=== PATIENT | female | born 1960 | race Caucasian/White ===

== ENCOUNTER → 2016-05-24 | Outpatient (CLI) | payer BC, MEDICARE, OTHER ==
--- NOTE | 2016-05-24 15:37 | WOMENS IMAGING REPORT ---
EXAM DESCRIPTION: BILAT SCREENING MAMMO W/CAD COMPLETED DATE/TIME: 05/24/2016 2:21 pm REASON FOR STUDY: BILAT SCREENING MAMMO (Z12.31) Z12.31 ENCNTR SCREEN MAMMOGRAM FOR MALIGNANT NEOPL ASM OF YRIS COMPARISON: 2008 to 2015 TECHNIQUE: Standard craniocaudal and mediolateral oblique views of each breast recorded using digita l acquisition. LIMITATIONS: None. FINDINGS: No masses, calcifications or architectural distortion. No areas of suspicion. Read with the assistance of CAD. .[facility] - R2 Cenova Version 1.3 .[facility] - R2 Cenova Version 1.3 .[facility] - R2 Cenova Version 2.4 .[facility] [place]2 Cenova Version 2.4 .[facility] - R2 Publishing Manager Version 9.2 BREAST DENSITY: b. There are scattered areas of fibroglandular density. BIRAD: 1 NEGATIVE RECOMMENDATION: ROUTINE SCREENING COMMENT: PATIENT NOTIFIED BY LETTER. The [employer] [place] [employer] recommends an annual screening mammogram for women aged 40 years or over. Each patient will receive a reminder prior to the anniversary date of her mammogram. The [employer] [place] [employer] (ACR) has developed recommendations for screening MRI of the breast s in certain patient populations, to be used in conjunction with mammography. Breast MRI surveillanc e may be appropriate for women with more than 20% lifetime risk of developing breast cancer as deter mined by genetic testing, significant family history of the disease, or history of mantle radiation f or Hodgkins Disease. ACR Practice Guidelines 2008. TECHNICAL DOCUMENTATION: FINDING NUMBER: (1) ASSESSMENT: (1) JOB ID: [id number] [employer]- All Rights Reserved
== END ==
LOC: WI 14:17
PROVIDERS: ATTEND Surgery
DX: Z12.31 Encounter for screening mammogram for malignant neoplasm of breast (principal)
CPT/HCPCS: 77067; G0202

== ENCOUNTER 2016-11-15 09:52 | Inpatient (IN) | payer BC, MEDICARE ==
[2016-11-15] MEDS ORDERED: NORMAL SALINE 1000 ML 1,000 ML IV ONE (10:23)
[2016-11-15] MEDS ORDERED: METHYLPREDNISOLONE INJ 125 MG/2 ML SDV IV ONE (10:23)
[2016-11-15 10:24] LABS: VENOUS BLOOD BASE EXCESS -2.1 mmol/L; VENOUS BLOOD HCO3 21.1 mmol/L (20-32); VENOUS BLOOD PCO2 31.5 mmHg (35-63); VENOUS BLOOD PH 7.44 (7.30-7.42)
[2016-11-15 10:25] LABS: ABSOLUTE LYMPHOCYTES (AUTO) 0.8 10^3/uL (0.5-4.7); ABSOLUTE MONOCYTES (AUTO) 0.5 10^3/uL (0.1-1.4); ABSOLUTE NEUT (AUTO) 12.3 10^3/uL (1.7-8.2); BASOPHILS % (AUTO) 0.3 % (0-2); HEMATOCRIT 39.1 % (36.0-47.0); HEMOGLOBIN 12.9 g/dL (12.0-15.5); HGB HCT DIFFERENCE -0.4; LYMPHOCYTES % (AUTO) 5.5 % (13-45); MEAN CORPUSCULAR HEMOGLOBIN 31.4 pg (27.0-33.4); MEAN CORPUSCULAR VOLUME 95 fl (80-97); MONOCYTES % (AUTO) 3.8 % (3-13); RED CELL DISTRIBUTION WIDTH 13.3 % (11.5-14.0); SEGMENTED NEUTROPHILS % (AUTO) 90.4 % (42-78); WHITE BLOOD COUNT 13.7 10^3/uL (4.0-10.5)
[2016-11-15 10:45] LABS: ALANINE AMINOTRANSFERASE 33 U/L (9-52); ALBUMIN 4.2 g/dL (3.5-5.0); ALKALINE PHOSPHATASE 69 U/L (38-126); ANION GAP 15 (5-19); ASPARTATE AMINO TRANSFERASE 23 U/L (14-36); BILIRUBIN,DIRECT 0.4 mg/dL (0.0-0.4); BILIRUBIN,TOTAL 0.4 mg/dL (0.2-1.3); BLOOD UREA NITROGEN 10 mg/dL (7-20); CALCIUM 9.8 mg/dL (8.4-10.2); CARBON DIOXIDE 18 mmol/L (22-30); CHLORIDE 102 mmol/L (98-107); CREATINE KINASE 273 U/L (30-135); CREATININE RESULT 0.67 mg/dL (0.52-1.25); GLUCOSE 97 mg/dL (75-110); SODIUM 134.9 mmol/L (137-145); TOTAL PROTEIN 7.3 g/dL (6.3-8.2)
[2016-11-15] MEDS ORDERED: ACETAMINOPHEN 325 MG TABLET PO ONE (10:47)
--- NOTE | 2016-11-15 10:48 | ER Document Report ---
ED Respiratory Problem - General Chief Complaint: Breathing Difficulty Stated Complaint: COUGH AND CONGESTION Time Seen by Provider: 11/15/16 10:14 Information source: Patient Notes: Patient is a 56-year-old female with past medical history of COPD, high cholesterol, high blood pressure, on 2 L of nasal cannula at baseline at home with presents today with the onset 3 days ago of increased cough, temperature 101, with some yellow phlegm. Patient denies any headache, neck pain, and states posttussive emesis 2. Patient states some substernal chest and back pain only with coughing. She denies any calf pain, leg swelling, or recent trips or travel. TRAVEL OUTSIDE OF THE [place] IN LAST 30 DAYS: No - HPI Patient complains to provider of: COPD Onset: Other - See above Initiating Event: Other - See above Quality of pain: Dull Severity: Mild Pain Level: 2 Short of Breath: Mild Chest pain/discomfort: Center Cough: Productive Sputum amount: Scant Sputum color: Yellow - Related Data Allergies/Adverse Reactions: Sulfa (Sulfonamide Antibiotics) Allergy (Severe, Verified 04/28/12 16:06) Past Medical History - General Information source: Patient - Social History Smoking Status: Unknown if Ever Smoked Cigarette use (# per day): No Chew tobacco use (# tins/day): No Smoking Education Provided: No Frequency of alcohol use: None Family History: Reviewed & Not Pertinent Patient has homicidal ideation: No - Past Medical History Cardiac Medical History: Reports: Hx Hypercholesterolemia, Hx Hypertension Denies: Hx Heart Attack Pulmonary Medical History: Reports: Hx Asthma - COPD, Hx COPD, Hx Pneumonia - 3 YRS AGO Denies: Hx Tuberculosis Neurological Medical History: Denies: Hx Cerebrovascular Accident, Hx Seizures Renal/ Medical History: Denies: Hx Peritoneal Dialysis GI Medical History: Reports: Hx Gastroesophageal Reflux Disease. Denies: Hx Hepatitis, Hx Hiatal Hernia, Hx Ulcer Musculoskeltal Medical History: Reports Hx Arthritis Traumatic Medical History: Reports: Hx Fractures - RIBS-LEFT SIDE Infectious Medical History: Denies: Hx Hepatitis Past Surgical History: Reports: Hx Hysterectomy. Denies: Hx Mastectomy, Hx Open Heart Surgery, Hx Pacemaker - Immunizations Hx Diphtheria, Pertussis, Tetanus Vaccination: No Hx Pneumococcal Vaccination: 03/09/10 Review of Systems - Review of Systems Constitutional: Fever EENT: Nose congestion, Nose discharge. denies: Eye discharge Cardiovascular: Chest pain. denies: Palpitations Respiratory: denies: Short of breath Gastrointestinal: denies: Vomiting Genitourinary: denies: Dysuria Musculoskeletal: denies: Leg swelling Skin: Other - no hives. denies: Rash Neurological/Psychological: Other - no slurred speech -: Yes All other systems reviewed and negative Physical Exam - Vital signs Vitals: Temp Pulse Resp BP Pulse Ox 99.0 F 126 H 32 H 140/85 H 90 L 11/15/16 09:57 11/15/16 09:57 11/15/16 09:57 11/15/16 09:57 11/15/16 09:57 Interpretation: Normal Notes: Reviewed vital signs and nursing note as charted by RN. CONSTITUTIONAL: Alert and oriented and responds appropriately to questions. Well -appearing; well-nourished HEAD: Normocephalic; atraumatic ENT: Bilateral nonpurulent rhinorrhea; moist mucous membranes; pharynx without lesions noted NECK: Supple without meningismus; non-tender; no cervical lymphadenopathy, no masses CARD: Tachycardic; no murmurs, no clicks, no rubs, no gallops; symmetric distal pulses RESP: Tachypneic; bilateral wheezing with no obvious rhonchi or rales; chest nontender no obvious crepitus erythema or swelling ABD/GI: Normal bowel sounds; non-distended; soft, non-tender BACK: The back appears normal and is non-tender to palpation, there is no CVA tenderness EXT: Normal ROM in all joints; non-tender to palpation; no cyanosis, no effusions, no edema SKIN: Normal color for age and race; warm; dry; good turgor; capillary refill < 2 seconds; patient's right second and third toe with bandage in place. No surrounding erythema or induration NEURO: Moves all extremities equally; Motor and sensory function intact PSYCH: The patient's mood and manner are appropriate. Grooming and personal hygiene are appropriate. Course - Re-evaluation Re-evalutation: 11/15/16 10:47 Given the above history and physical examination we will order steroids, nebulizers, x-ray of the chest, basic labs, EKG, and reassess. I believe given the history and physical examination that the patient has an extremely low pretest probability for aortic dissection or pulmonary embolism. We will reassess the patient. Patient's heart is currently 120 with no history of heart failure. A liter of fluid has been provided. 11/15/16 11:00 EKG shows a heart rate of 115, sinus tachycardia, normal axis, no obvious ST elevation or depression. Flattening T waves in leads III and aVF 11/15/16 13:26 Wheezing is slightly improved. Labs as recorded. Normal lactic acid. Patient is still having some mild tachypnea with a heart rate of 115 with wheezing on end expiration. I will admit the patient for COPD exacerbation. - Vital Signs Vital signs: Temp Pulse Resp BP Pulse Ox 99.0 F 126 H 32 H 140/85 H 90 L 11/15/16 09:57 11/15/16 09:57 11/15/16 09:57 11/15/16 09:57 11/15/16 09:57 - Laboratory Result Diagrams: 11/15/16 10:10 11/15/16 10:10 Laboratory results interpreted by me: 11/15/16 11/15/16 11/15/16 10:10 10:10 10:10 WBC 13.7 H Seg Neutrophils % 90.4 H Lymphocytes % 5.5 L Absolute Neutrophils 12.3 H VBG pH 7.44 H VBG pCO2 31.5 L Sodium 134.9 L Carbon Dioxide 18 L Creatine Kinase 273 H Critical Care Note - Critical Care Note Total time excluding time spent on procedures (mins): 32 Discharge - Discharge Clinical Impression: Bacterial pneumonia, Wheezing Condition: Fair Disposition: ADMITTED OBSERVATION Admitting Provider: Hospitalist Unit Admitted: Telemetry Referrals: YOVANA LABOY MD [Primary Care Provider] - Follow up as needed
[2016-11-15 10:55] LABS: TROPONIN I < 0.012 ng/mL
[2016-11-15] MEDS: IPRATROPIUM/ALBUTEROL 0.5-2.5 MG/3 ML AMPUL NEB SCH ×3 (11:06→11:54)
--- NOTE | 2016-11-15 11:11 | RADIOLOGY REPORT (SQ) ---
EXAM DESCRIPTION: CHEST SINGLE VIEW COMPLETED DATE/TIME: 11/15/2016 10:49 am REASON FOR STUDY: bed 11 db COMPARISON: CT chest 04/28/2012 Chest films 04/28/2012, 07/14/2011 EXAM PARAMETERS: NUMBER OF VIEWS: One view. TECHNIQUE: Single frontal radiographic view of the chest acquired. RADIATION DOSE: NA LIMITATIONS: None. FINDINGS: LUNGS AND PLEURA: Increased interstitial markings are present at the left lung base, quest ion asymmetric interstitial pulmonary edema. Early atypical pneumonia could also mimic this appearan ce. No pleural effusions. No pneumothorax. MEDIASTINUM AND HILAR STRUCTURES: No masses. Contour normal. HEART AND VASCULAR STRUCTURES: Cardiac silhouette size normal BONES: Multiple old healed right lateral rib fractures HARDWARE: None in the chest. OTHER: No other significant finding. IMPRESSION: Asymmetric increased interstitial markings at the left lung base, asymmetric edema versu s atypical pneumonia. Asymmetric pulmonary fibrosis could mimic this appearance. No cardiomegaly. No pleural effusions or pneumothorax. TECHNICAL DOCUMENTATION: JOB ID: [id number]
[2016-11-15 11:28] LABS: APPEARANCE,URINE CLEAR; BILIRUBIN,URINE NEGATIVE (NEGATIVE); GLUCOSE, URINE NEGATIVE (NEGATIVE); KETONES,URINE NEGATIVE (NEGATIVE); LEUKOCYTE ESTERASE,URINE NEGATIVE (NEGATIVE); NITRITE,URINE NEGATIVE (NEGATIVE); PROTEIN,URINE NEGATIVE (NEGATIVE); URINE SPECIFIC GRAVITY 1.009; UROBILINOGEN,URINE NEGATIVE mg/dL (<2.0)
--- NOTE | 2016-11-15 13:04 | EKG REPORT ---
SEVERITY:- BORDERLINE ECG - SINUS TACHYCARDIA NONSPECIFIC ST-T CHANGES, DIFFUSE : Confirmed by: Jason Peguero MD 15-Nov-2016 13:04:14
[2016-11-15] MEDS ORDERED: GUAIFENESIN 600 MG TABLET.SA PO ONE (14:18)
[2016-11-15] MEDS ORDERED: BENZONATATE 100 MG CAPSULE PO PRN (14:18)
[2016-11-15] MEDS ORDERED: LEVALBUTEROL HCL NEB 0.63 MG/3 ML AMPUL NEB PRN (14:20)
[2016-11-15] MEDS ORDERED: KETOROLAC TROMETHAMINE INJ/PF 30 MG/1 ML SDV IV ONE (14:20)
--- NOTE | 2016-11-15 14:26 | Progress Note ---
Provider Note Provider Note: DANAE VERAS Search Criteria: Last Name 'Danae' and First Name 'Mariely' and = ' and Request Period = '05/19/16' to 11/15/16' - 1 out of 1 Recipients Selected. Fill Date Product, Str, Form Qty Days Pt ID Prescriber Written RX# N/R* Pharm MED+ ------ ---- --------- --- ------- ----- -------- 10/19/2016 HYDROCODON-ACETAMINOPHN 10-325 60.00 30 [id number] 2016 [id number] N [id number] 20.0 10/12/2016 HYDROCODON-ACETAMINOPH 7.5-325 20.00 4 [id number] 10/12/2016 [id number] N [id number] 37.5 10/06/2016 HYDROCODON-ACETAMINOPH 7.5-325 20.00 4 [id number] 10/06/2016 [id number] N [id number] 37.5 09/19/2016 HYDROCODON-ACETAMINOPHN 10-325 60.00 30 [id number] 2016 [id number] N [id number] 20.0 08/25/2016 HYDROCODON-ACETAMINOPHN 10-325 30.00 30 [id number] 2016 [id number] N [id number] 10.0 08/20/2016 HYSINGLA ER 20 MG TABLET 30.00 30 [id number] 08/18/2016 [id number] N [id number] 20.0 08/18/2016 HYDROCODON-ACETAMINOPHN 10-325 15.00 5 [id number] 08/13/2016 [id number] N [id number] 30.0 08/10/2016 HYDROCODON-ACETAMINOPHN 10-325 12.00 3 [id number] 08/10/2016 [id number] N [id number] 40.0 08/10/2016 DIAZEPAM 10 MG TABLET 2.00 1 [id number] 08/10/2016 [id number] N [id number] 00.0 07/26/2016 DIAZEPAM 10 MG TABLET 2.00 1 [id number] 07/21/2016 [id number] N [id number] 00.0 07/26/2016 HYDROCODON-ACETAMINOPHN 10-325 60.00 30 [id number] 2016 [id number] N [id number] 20.0 06/27/2016 HYDROCODON-ACETAMINOPHN 10-325 60.00 30 [id number] 2016 [id number] N [id number] 20.0 06/16/2016 HYDROCODON-ACETAMINOPH 7.5-325 20.00 5 [id number] 06/16/2016 [id number] N [id number] 30.0 05/28/2016 HYDROCODON-ACETAMINOPHN 10-325 60.00 30 [id number] 2016 [id number] N [id number] 20.0 [id number] BILLY CLEMENTS PA-C; [facility], [address] [facility] [address] [id number] ROSANNE WILLAMS DPM; [facility], [address] [place] [address], [facility] [address] [id number] ISSAC ENRIQUEZ E; [facility], [address] [place] [address] [id number] INES MILNER; [facility], [address] [place] [address],, [facility] [address]
[2016-11-15] MEDS ORDERED: ENOXAPARIN SODIUM INJ 40 MG/0.4 ML DISP.SYRIN SUBCUT ONE (14:30)
[2016-11-15] MEDS ORDERED: FLUTICASONE NASAL SPRAY 50 MCG/SPRY 120 SPRAY/16 GM NASL ONE (15:00)
[2016-11-15] MEDS: LEVALBUTEROL HCL NEB 1.25 MG/3 ML AMPUL NEB SCH (16:51)
--- NOTE | 2016-11-15 17:38 | HISTORY AND PHYSICAL E ---
History and Physical NAME: RITO FINK : 1960 AGE: 56Y ADMITTED: 11/15/2016 ROOM: ED11 PRIMARY CARE PROVIDER: Dr. Vini Ovalles OUTPATIENT LITERARY AGENT: Dr. Christensen CHIEF COMPLAINT: Shortness of breath and sputum production. HISTORY OF PRESENT ILLNESS: The patient is a 56-year-old female with a past medical history of chronic obstructive pulmonary disease as well as pulmonary fibrosis. The patient is chronically O2 dependent. The patient presents to the emergency department with a chief complaint of cough and congestion as well as shortness of breath. 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 The patient describes increasing cough, a temperature of greater than 101 as well as excessive amount of yellow phlegm. The patient states that she does have full body aches as well as a headache as well as some back pain associated with her coughing. The patient denies any recent travel, calf pain, or leg pain. Upon presentation to the emergency department, the patient was found to be tachycardiac with a heart rate of 126, a temperature of 99.0, oxygen saturation was 90% on room air and the patient was tachypneic with a respiratory rate of 32. That in conjunction with the patient's chest x-ray, it was felt the patient did have SIRS versus early sepsis and was referred to the hospitalist for admission and management. PAST MEDICAL HISTORY: Remarkable for: 1. Hypertension. 2. Chronic obstructive pulmonary disease with O2 dependency. 3. Hyperlipidemia. 4. Chronic pain with opiate dependency. PAST SURGICAL HISTORY: Remarkable for: 1. Hysterectomy. 2. Tonsillectomy. 3. Right wrist repair. 4. Bilateral surgeries on her second toe. ALLERGIES: Include SULFA. HOME MEDICATIONS: 1. Albuterol puff inhalation q.i.d. p.r.n. 2. Norvasc 10 mg p.o. daily. 3. Lexapro 20 mg p.o. daily. 4. Nexium 40 mg p.o. b.i.d. 5. Premarin 0.9 mg p.o. daily. 6. Tricor 445 mg p.o. daily. 7. Advair 250/50 one inhalation q.12 hours. 8. Phenergan 25 mg p.o. q.4 hours p.r.n. 9. Crestor 10 mg p.o. b.i.d. 10. Spiriva 1 capsule inhalation daily. SOCIAL HISTORY: The patient currently resides at home with her spouse who is also her surrogate decision maker, Hagn. The patient denies any history of alcohol abuse or illicit drug use. The patient is an active smoker with a 60-year pack history. The patient is disabled due to chronic back pain. FAMILY MEDICAL HISTORY: The patient's father is of lung cancer and heart disease. The patient's mother is of a stroke. The patient has 1 brother who has had a stroke and 2 sisters who are otherwise healthy. The patient's children have no chronic medical problems. REVIEW OF SYSTEMS: CONSTITUTIONAL: The patient denies any dizziness, weakness, loss of appetite. Positive for fevers and chills. INTEGUMENTARY: The patient denies any diaphoresis, rash, bruising, itching. HEENT: Denies any vision changes, hearing loss, nasal drainage, sore throat. Positive for headache. CARDIOVASCULAR: Denies any chest pain, edema, or heart palpitations. Positive for shortness of breath. RESPIRATORY: Denies any hemoptysis for positive for cough and yellow sputum production. GASTROINTESTINAL: Denies any nausea, vomiting, diarrhea, abdominal pain, bloating, hematemesis, constipation, melena, hematochezia. Last bowel movement was on 11/14/2016 which was "normal." GENITOURINARY: Denies any hematuria, pyuria, or dysuria. MUSCULOSKELETAL: The patient does have chronic lower back pain. No acute pains. NEUROLOGICAL: No seizures, tremors, loss of consciousness. HEMATOLOGICAL: Denies any todd bleeding or easy bruising. ENDOCRINE: Denies any recent weight changes. PSYCHIATRIC: Denies suicidal or homicidal ideation. Rest of review of the other organ systems is negative. PHYSICAL EXAMINATION: GENERAL: On examination, the patient is a frail, chronically ill appearing 56-year-old female who is awake, alert, and oriented who appears much older than stated age. She does appear to be in some mild distress. VITAL SIGNS: Temperature 99.0, pulse 126, respirations 32, blood pressure is 140/85, oxygen saturation is 92% on 3 L nasal cannula. SKIN: Pale and dry. No rash. She is not diaphoretic. HEENT: Pupils equal, round, reactive to light and accommodation. Conjunctivae are pink. Sclerae are nonicteric. There are no masses or lesions. Tongue is midline. NECK: Supple. No JVD. No palpable lymphadenopathy or thyromegaly. CARDIOVASCULAR: Heart is tachycardiac but regular with no rub. CHEST: Symmetrical with expiratory wheezes, slightly labored. ABDOMEN: Soft, nontender, nondistended. Bowel sounds are present. No palpable organomegaly. BACK: No CVA tenderness or sacral edema. EXTREMITIES: No clubbing, cyanosis, edema, or peripheral signs of embolization. Pedal pulses 2+ noted bilaterally. PSYCHIATRIC: Appropriate affect. Pleasant mood. NEUROLOGIC: Cranial nerves II-XII are grossly intact. DIAGNOSTICS: Lab values are follows: Hematology obtained on 11/15/2016: WBCs are 13.7, hemoglobin is 12.9, hematocrit is 39.9, platelet count is 266,000. Chemistry obtained on 11/15/2016: Sodium is 134, potassium 4.0, chloride is 102, carbon dioxide 18, BUN 10, creatinine is 0.67, glucose 97, lactic acid 1.1, calcium is 9.8, bilirubin is 0.4, AST 23, ALT 33, alk phos 69, CK 273, CK-MB is 1.40, troponin is 0.012, total protein is 4.3, albumin 4.2. Urinalysis obtained on 11/15/2016: Color yellow, appearance clear, pH 5.0, specific gravity 1.009, protein negative, glucose negative, ketones negative, occult blood negative, nitrate negative, bilirubin negative, urobilinogen negative, leukocyte esterase negative, WBC 1, RBC 0, mucous rare, ascorbic acid is negative. Venous blood gas obtained on 11/15/2016: Her pCO2 is 31, bicarb is 21, pH is 7.44. Microbiology obtained on 11/15/2016: Blood cultures are pending. Chest x-ray obtained on 11/15/2016 reveals asymmetric interstitial increased markings of left lung base. Asymmetric edema versus atypical pneumonia. Asymmetric pulmonary fibrosis is a possibility. No pleural effusion or pneumothorax. IMPRESSION AND PLAN: 1. Chronic obstructive pulmonary disease exacerbation. Will schedule nebulizers as well as steroids. Resume the patient's home medications once reconcilable and follow. 2. Bacterial pneumonia. Will cover the patient with doxycycline for now as she has had an excellent response to this in the past and also add Mucinex and pulmonary toilet and follow. 3. Ejbby-mt-hqhewga hypoxemic respiratory failure. Will continue supplemental O2 and follow. 4. Opiate dependency continuous. Will resume the patient's chronic medications once reconcilable. 5. Hypertension. Will resume the patient's home medications. 6. Gastroesophageal reflux disease. Will continue the patient's home medications. 7. Hyperlipidemia. Will continue statin. 8. Tobacco dependency. Spent 3 minutes discussing smoking cessation education. The patient declines any pharmacological intervention at this time but has agreed to take a p.r.n. nicotine patch. 9. DVT prophylaxis. Will start the patient on subcutaneous Lovenox. DISPOSITION: The patient is a FULL CODE. Pending patient's symptomatology and diagnostic findings, will reevaluate in the a.m. Will admit the patient to inpatient IMCU as the patient's expected length of stay will surpass 2 midnights. Time spent on this admission including assessment, plan, physical examination, patient education, and family meeting is 40 minutes. DICTATING PHYSICIAN: DEDE VASQUES NP [id number] PHY#: [id number] ID: [id number] JOB#: [id number] ACCT: [id number] cc:RACHEL QUEEN M.D., MICHAEL NP > MTDD
[2016-11-15] MEDS: DOXYCYCLINE HYCLATE 100 MG in DEXTROSE 5%-WATER 250 ML IV SCH (19:44)
[2016-11-15] MEDS ORDERED: KETOROLAC TROMETHAMINE INJ/PF 30 MG/1 ML SDV IV PRN (20:22)
[2016-11-15] MEDS: METHYLPREDNISOLONE INJ 125 MG/2 ML SDV IV SCH (21:31)
[2016-11-15] MEDS: GUAIFENESIN 600 MG TABLET.SA PO SCH (21:32)
[2016-11-15] MEDS: ATORVASTATIN CALCIUM 10 MG TABLET PO SCH (21:32)
[2016-11-15] MEDS: MONTELUKAST SODIUM 10 MG TABLET PO SCH (21:32)
[2016-11-15] MEDS: FLUTICASONE NASAL SPRAY 50 MCG/SPRY 120 SPRAY/16 GM NASL SCH (21:33)
[2016-11-15] MEDS ORDERED: (PENDING PHARMACY ID) (Rosuvastatin Calcium [Crestor 20 Mg Tablet] 20 MG) PO SCH (22:00)
[2016-11-16] MEDS: LEVALBUTEROL HCL NEB 1.25 MG/3 ML AMPUL NEB SCH ×4 (01:00→23:42)
[2016-11-16] MEDS: METHYLPREDNISOLONE INJ 125 MG/2 ML SDV IV SCH ×3 (05:33→21:07)
[2016-11-16] MEDS: DOXYCYCLINE HYCLATE 100 MG in DEXTROSE 5%-WATER 250 ML IV SCH ×2 (05:33→18:10)
[2016-11-16 06:30] LABS: HEMATOCRIT 33.9 % (36.0-47.0); HEMOGLOBIN 11.3 g/dL (12.0-15.5); MEAN CORPUSCULAR HEMOGLOBIN 31.5 pg (27.0-33.4); MEAN CORPUSCULAR HGB CONC 33.2 g/dL (32.0-36.0); MEAN CORPUSCULAR VOLUME 95 fl (80-97); RED BLOOD COUNT 3.58 10^6/uL (3.72-5.28); RED CELL DISTRIBUTION WIDTH 13.4 % (11.5-14.0); WHITE BLOOD COUNT 13.5 10^3/uL (4.0-10.5)
[2016-11-16 06:53] LABS: ANION GAP 14 (5-19); BLOOD UREA NITROGEN 13 mg/dL (7-20); CALCIUM 9.2 mg/dL (8.4-10.2); CARBON DIOXIDE 19 mmol/L (22-30); CHLORIDE 106 mmol/L (98-107); CREATININE RESULT 0.48 mg/dL (0.52-1.25); GLUCOSE 103 mg/dL (75-110); POTASSIUM 4.1 mmol/L (3.6-5.0); SODIUM 138.6 mmol/L (137-145)
--- NOTE | 2016-11-16 09:03 | PROGRESS NOTE E ---
Progress Note NAME: RITO FINK : 1960 AGE: 56Y DATE: 11/16/2016 ROOM: 527 SUBJECTIVE: The patient is lying bed. She states that she feels much better in comparison to yesterday. The patient is dyspneic; however, she is now able to complete sentences which is a change in comparison. The patient denies any nausea or vomiting. No diarrhea, dizziness, or chest pain. The patient states that she has had a very strong cough and is now able to produce sputum which is an improvement. The patient does not voice any other concerns at this time. REVIEW OF SYSTEMS: Rest of the review of systems negative. MEDICATIONS: Have been reviewed. OBJECTIVE: GENERAL: The patient is a 56-year-old female who is awake, alert, and oriented to person, place, time, and situation. She is verbal, conversational, and does not appear to be in acute distress. VITAL SIGNS: Temperature 97.3, pulse 109, respirations 17, blood pressure 124/78, oxygen saturation is 98% on 2 L nasal cannula. SKIN: Warm and dry. No rash. She is not diaphoretic. HEENT: Pupils equal, round, reactive to light and accommodation. Conjunctivae are pink. No JVP. CARDIOVASCULAR: Heart is regular with no murmur or rub. CHEST: Diminished, symmetrical, mildly labored. ABDOMEN: Soft, nontender, nondistended. BACK: No CVA tenderness or sacral edema. EXTREMITIES: No clubbing, cyanosis, or edema. PSYCHIATRIC: Appropriate affect. Pleasant mood. DIAGNOSTICS: Lab values are as follows: Hematology obtained on 11/16/2016: WBCs are 13.5, hemoglobin is 11.3, hematocrit is 33.9, platelet count is 218,000. Chemistry obtained on 11/16/2016: Sodium is 138, potassium 4.1, chloride is 106, carbon dioxide 19, BUN 13, creatinine 0.48, glucose 103, calcium is 9.2. Microbiology: Blood cultures obtained on 11/15/2016 are pending. IMPRESSION AND PLAN: 1. CHRONIC OBSTRUCTIVE PULMONARY DISEASE EXACERBATION. Will continue nebulizers as well as steroids and have resumed the patient's home medications. Overall the patient is now on her home oxygen setting. 2. BACTERIAL PNEUMONIA. Will continue doxycycline as the patient has had an excellent response to this with Mucinex and pulmonary toilet. Will follow. Will obtain chest x-ray in the a.m. 3. GPSPC-WD-SYOGYXS HYPOXEMIC RESPIRATORY FAILURE. The patient is on home dose of supplemental O2. 4. OPIATE DEPENDENCY CONTINUOUS. Will continue the patient's medications once they are reconcilable. 5. HYPERTENSION. Will resume home medications. 6. GASTROESOPHAGEAL REFLUX DISEASE. Will continue home medications. 7. HYPERLIPIDEMIA. Will continue statin. 8. TOBACCO DEPENDENCY. Will continue p.r.n. nicotine patch. 9. DVT PROPHYLAXIS. Will continue subcutaneous Lovenox. DISPOSITION: The patient is a FULL CODE. Pending patient's symptomatology and diagnostic findings, will reevaluate in the a.m. for discharge. Time spent on this followup including assessment, plan, physical examination, patient education is 25 minutes. DICTATING PHYSICIAN: DEDE VASQUES NP [id number] PHY#: [id number] ID: [id number] JOB#: [id number] ACCT: [id number] cc: >
[2016-11-16] MEDS: FLUTICASONE NASAL SPRAY 50 MCG/SPRY 120 SPRAY/16 GM NASL SCH ×2 (11:11→21:06)
[2016-11-16] MEDS: TIOTROPIUM BROMIDE DPI 5 CAP/KIT (18 MCG/CAP) IH SCH (11:11)
[2016-11-16] MEDS: FLUTICASONE/SALMETEROL DISKUS 250-50 MCG/DOSE IH SCH ×2 (11:12→17:53)
[2016-11-16] MEDS: ESCITALOPRAM OXALATE 10 MG TABLET PO SCH (11:14)
[2016-11-16] MEDS: AMLODIPINE BESYLATE 10 MG TABLET PO SCH (11:14)
[2016-11-16] MEDS: GUAIFENESIN 600 MG TABLET.SA PO SCH ×2 (11:14→21:07)
[2016-11-16] MEDS: LANSOPRAZOLE 30 MG TAB.RAP.DR PO SCH ×2 (11:15→17:53)
[2016-11-16] MEDS: ENOXAPARIN SODIUM INJ 40 MG/0.4 ML DISP.SYRIN SUBCUT SCH (11:15)
[2016-11-16] MEDS: ATORVASTATIN CALCIUM 10 MG TABLET PO SCH (21:07)
[2016-11-16] MEDS: MONTELUKAST SODIUM 10 MG TABLET PO SCH (21:07)
[2016-11-17] MEDS: METHYLPREDNISOLONE INJ 125 MG/2 ML SDV IV SCH ×3 (06:13→21:23)
[2016-11-17] MEDS: DOXYCYCLINE HYCLATE 100 MG in DEXTROSE 5%-WATER 250 ML IV SCH ×2 (06:13→17:44)
[2016-11-17] MEDS ORDERED: CYCLOBENZAPRINE HCL 10 MG TABLET PO PRN (07:37)
[2016-11-17] MEDS ORDERED: BUTALB/ACETAMINOPHEN/CAFFEINE 1 TAB EACH PO PRN (07:37)
[2016-11-17] MEDS ORDERED: HYDROCODONE/ACETAMINOPHEN 10-325 MG TABLET PO PRN (07:37)
[2016-11-17] MEDS: LEVALBUTEROL HCL NEB 1.25 MG/3 ML AMPUL NEB SCH ×3 (07:52→23:01)
--- NOTE | 2016-11-17 07:54 | RADIOLOGY REPORT (SQ) ---
EXAM DESCRIPTION: CHEST PA/LAT COMPLETED DATE/TIME: 11/17/2016 7:44 am REASON FOR STUDY: FU PNA COMPARISON: Chest x-ray 11/15/2016. EXAM PARAMETERS: NUMBER OF VIEWS: two views TECHNIQUE: Digital Frontal and Lateral radiographic views of the chest acquired. RADIATION DOSE: NA LIMITATIONS: none FINDINGS: LUNGS AND PLEURA: Interval increase in the airspace opacities in the left lower lobe. No pleural effusion or pneumothorax. There are prominent interstitial markings. MEDIASTINUM AND HILAR STRUCTURES: No masses or contour abnormalities. HEART AND VASCULAR STRUCTURES: Heart normal size. No evidence for failure. BONES: There are healed right-sided rib fractures. Multilevel degenerative changes in the spine. Th ere is thoracic scoliosis. HARDWARE: None in the chest. IMPRESSION: Interval increase in the airspace opacities in the left lower lobe, may represent worsen ing pneumonia and/or asymmetric pulmonary edema. Prominent interstitial markings, suggestive of inte rstitial edema. TECHNICAL DOCUMENTATION: JOB ID: [id number] 2010 [employer]- All Rights Reserved
--- NOTE | 2016-11-17 08:23 | PROGRESS NOTE E ---
Progress Note NAME: RITO FINK : 1960 AGE: 56Y DATE: 11/17/2016 ROOM: 527 SUBJECTIVE: The patient is currently lying in bed. She states she feels a little better than yesterday. She is still dyspneic, but is able to complete sentences. She denies any nausea, vomiting, diarrhea, dizziness, chest pain. No fevers, chills. Still somewhat dyspneic, but overall improved. The patient admits to a strong cough, has been producing some sputum, and patient does not voice any other concerns at this time. REVIEW OF SYSTEMS: Rest of review of systems negative. MEDICATIONS: Medications have been reviewed. OBJECTIVE: GENERAL: The patient is a 56-year-old female who is awake, alert, and oriented to person, place, time, and situation. She is verbal, conversational, ambulatory, does not appear to be in acute distress. VITAL SIGNS: Temperature is 98.0, pulse 110, respirations 17, blood pressure is 118/70, oxygen saturation is 94% on 2 L nasal cannula. SKIN: Warm and dry. No rash. She is not diaphoretic. HEENT: Pupils equal, round, and reactive to light and accommodation. Conjunctivae pink. No JVP. CARDIOVASCULAR SYSTEM: Heart is regular. There is no murmur or rub. A little tachycardia. CHEST: Diminished, symmetrical, unlabored. ABDOMEN: Soft, nontender, nondistended. BACK: No CVA tenderness or sacral edema. EXTREMITIES: No clubbing, cyanosis, edema. PSYCHIATRIC: Appropriate affect, pleasant mood. DIAGNOSTICS: Lab values are as follows: Hematology obtained on 11/16/2016: WBCs are 13.5, hemoglobin is 11.3, hematocrit is 33.9, platelet count is 218,000. Chemistry obtained on 11/16/2016: Sodium is 138, potassium is 4.1, chloride is 106, carbon dioxide 19, BUN 13, creatinine is 0.48. Glucose 103, calcium is 9.2. IMPRESSION AND PLAN: 1. CHRONIC OBSTRUCTIVE PULMONARY DISEASE EXACERBATION. Will continue nebulizers and begin to titrate steroids. Will resume the patient's home medications. Overall, the patient is now on a home O2 setting. 2. BACTERIAL PNEUMONIA. Will continue doxycycline as the patient has had an excellent response with this as well as Mucinex and pulmonary toilet. Will await findings from chest x-ray. 3. ACUTE ON CHRONIC HYPOXEMIC RESPIRATORY FAILURE. The patient is on home supplemental O2 at this point. 4. HYPERTENSION. Will resume home medication. 5. GASTROESOPHAGEAL REFLUX DISEASE. Will continue home meds. 6. HYPERLIPIDEMIA. Continue statin. 7. TOBACCO DEPENDENCY. Will continue p.r.n. nicotine patch. 8. DVT PROPHYLAXIS. Will continue subcu Lovenox. DISPOSITION: The patient is a FULL CODE. Pending patient's symptomatology and diagnostic findings, will re-evaluate in the a.m. for discharge. Time spent on this followup including assessment, plan, physical examination, patient education is 25 minutes. DICTATING PHYSICIAN: DEDE VASQUES NP [id number] PHY#: [id number] ID: [id number] JOB#: [id number] ACCT: [id number] cc: >
[2016-11-17] MEDS ORDERED: (PENDING PHARMACY ID) (Esomeprazole Mag Trihydrate [Nexium] 40 MG) PO SCH (10:00)
[2016-11-17] MEDS ORDERED: FLUTICASONE NASAL SPRAY 50 MCG/SPRY 120 SPRAY/16 GM NAREB SCH (10:00)
[2016-11-17] MEDS: ENOXAPARIN SODIUM INJ 40 MG/0.4 ML DISP.SYRIN SUBCUT SCH (10:01)
[2016-11-17] MEDS: TIOTROPIUM BROMIDE DPI 5 CAP/KIT (18 MCG/CAP) IH SCH (10:02)
[2016-11-17] MEDS: FLUTICASONE/SALMETEROL DISKUS 250-50 MCG/DOSE IH SCH ×2 (10:02→17:45)
[2016-11-17] MEDS: AMLODIPINE BESYLATE 10 MG TABLET PO SCH (10:03)
[2016-11-17] MEDS: ESCITALOPRAM OXALATE 10 MG TABLET PO SCH (10:04)
[2016-11-17] MEDS: LANSOPRAZOLE 30 MG TAB.RAP.DR PO SCH ×2 (10:04→17:45)
[2016-11-17] MEDS: GUAIFENESIN 600 MG TABLET.SA PO SCH ×2 (10:04→21:23)
[2016-11-17] MEDS: PREDNISONE 20 MG TABLET PO SCH ×2 (10:05→17:44)
[2016-11-17] MEDS: BUPROPION HCL 100 MG TABLET PO SCH ×2 (14:59→21:23)
[2016-11-17] MEDS: ATORVASTATIN CALCIUM 10 MG TABLET PO SCH (21:23)
[2016-11-17] MEDS: MONTELUKAST SODIUM 10 MG TABLET PO SCH (21:23)
[2016-11-17] MEDS ORDERED: BIMATOPROST 0.01% OPH SOLN 2.5 ML/BOTTLE OU SCH (22:00)
[2016-11-18] MEDS: DOXYCYCLINE HYCLATE 100 MG in DEXTROSE 5%-WATER 250 ML IV SCH (05:33)
[2016-11-18] MEDS: METHYLPREDNISOLONE INJ 125 MG/2 ML SDV IV SCH (05:33)
[2016-11-18] MEDS: BUPROPION HCL 100 MG TABLET PO SCH (05:33)
[2016-11-18] MEDS: LEVALBUTEROL HCL NEB 1.25 MG/3 ML AMPUL NEB SCH (07:47)
[2016-11-18 08:18] VITALS: BP 148/90
--- NOTE | 2016-11-19 11:14 | DISCHARGE SUMMARY E ---
Discharge Summary NAME: RITO FINK : 1960 AGE: 56Y ADMITTED: 11/15/2016 DISCHARGED: 11/18/2016 CODE STATUS: FULL CODE. PRIMARY CARE PROVIDER: Dr. Vini Ovalles HEATING ENGINEER: Dr. Christensen in [place], [place] DISCHARGE DIAGNOSES: Includes: 1. Chronic obstructive pulmonary disease exacerbation. 2. Pneumonia. 3. Acute on chronic hypoxemic respiratory failure secondary to the above. 4. Hypertension. 5. Gastroesophageal reflux disease. 6. Hyperlipidemia. 7. Tobacco dependency. DISCHARGE MEDICATIONS: 1. Doxycycline 100 mg p.o. q. 12 hours, 14 tablets with 0 refills. 2. Flonase 2 sprays nasally q. 12 hours. 3. Mucinex 600 mg p.o. q. 12 hours, 6 tablet, 0 refills. 4. Singulair 10 mg p.o. q. hour of sleep, 30 tablets, 0 refills. 5. Prednisone 60 mg taper. 6. Norvasc 10 mg p.o. daily. 7. Lumigan 0.01% 1 drop in both eyes q. hour of sleep. 8. Wellbutrin XL 300 m.g. p.o daily. 9. Flexeril 10 mg p.o. b.i.d. p.r.n. 10. Lexapro 20 mg p.o. daily. 11. Nexium 40 mg p.o. b.i.d. 12. Tricor 145 mg p.o. daily. 13. Advair 250/50 one puff inhalation b.i.d. 14. Protonix 40 mg p.o. b.i.d. 15. Crestor 20 mg p.o. q. hour of sleep. 16. Spiriva 1 capsule inhalation daily. DIAGNOSTICS: Lab values are as follows: Hematology obtained on 11/16/2016: WBCs are 13.5, hemoglobin is 1.3, hematocrit is 23.9, platelet count is 218,000. Venous blood gas obtained on 11/15/2016: VBG is 7.44, PCO2 is 31.5, bicarb is 21.1. Chemistry obtained on 11/16/2016: Sodium is 138.6, potassium 4.1, chloride is 106, carbon dioxide 19, BUN 13, creatinine is 0.48. Glucose 103, lactic acid is 1.1, calcium is 9.2. Bilirubin is 0.4. AST 23, ALT is 33, Alk phos 69. CK 273, CK-MB is 1.40, troponin is 0.012. Total protein 7.3, albumin 4.2. Urinalysis obtained on 11/15/2016: Color yellow, appearance clear. PH is 5.0, specific gravity is 1.009. Protein negative, glucose negative, ketones negative, occult blood negative, nitrate negative, bilirubin negative. Mucus rare. Ascorbic acid is negative. Microbiology: Blood cultures obtained on 11/15/2016 are negative. Chest x-ray obtained on 11/15/2016 reveals asymmetric interstitial markings of the left lung base with evidence of pulmonary fibrosis. No cardiomegaly. No pleural effusions or pneumothorax. PHYSICAL EXAMINATION: GENERAL: On examination, the patient is a well-developed, frail, chronically ill-appearing 56-year-old female who is awake, alert, and oriented to person, place, time, and situation. She is verbal, conversational, does not appear to be in any acute distress. VITAL SIGNS: Temperature is 97.5, pulse 103, respirations 22, blood pressure is 121/72, oxygen saturation is 97% on 2 L nasal cannula. SKIN: Warm and dry. No rash. She is not diaphoretic. HEENT: No JVD. CHEST: Diminished, symmetrical, unlabored. ABDOMEN: Soft, nontender, nondistended. BACK: No CVA tenderness or sacral edema. EXTREMITIES: No clubbing, cyanosis, edema. PSYCHIATRIC: Appropriate affect, pleasant mood. HISTORY OF PRESENT ILLNESS: The patient is a 56-year-old female with a past medical history of oxygen-dependent COPD as well as pulmonary fibrosis. The patient presented to the emergency department with a chief complaint of shortness of breath and sputum production. The patient noted cough and congestion that had been going on for a number of days. The patient when her symptoms developed; however, she made contact with her boilermaking supervisor the day of admission and was instructed to come to the emergency department for evaluation. The patient describes having a fever as high as 101 as well as an excessive amount of yellow phlegm. The patient noted full body aches as well as headache and some back pain associated with the cough, and the patient denied any recent travel, calf pain, leg pain. Upon presentation to the emergency department, the patient was found to be tachycardic with a heart rate of 126, a temperature of 99.0, oxygen saturation of 90%, and the patient was tachypneic with a respiratory rate of 32. In conjunction with the patient's chest x-ray, it was felt she did have SIRS versus an early sepsis and was referred to the hospitalist for admission and management. HOSPITAL COURSE: Admitted and placed on scheduled nebulizers as well as steroids and IV doxycycline. The patient completed 3 days of treatment with much improvement in her symptoms. In spite of being oxygen dependent, the patient, at times, was able to tolerate even being on room air and was able to fully complete sentences. The patient has been producing copious amount of sputum with the help of a pulmonary toilet, and the patient does have a followup with her boilermaking supervisor and is quite eager for discharge. DISCHARGE PLANNIN. The patient is advised to follow up with her primary care provider as needed. 2. boilerm[address] Dr. Espinosa as already scheduled on Tuesday for followup. Time spent on this discharge including assessment, plan, physical examination, patient education is 15 minutes. DICTATING PHYSICIAN: DEDE VASQUES NP [id number] PHY#: [id number] ID: [id number] JOB#: [id number] ACCT: [id number] cc:Kevin TRAYLOR NP > MTDD
== END 2016-11-18 08:56 | disposition home or self-care (01) | DRG 193 ==
LOC: ER 09:52 → EH 13:58 → UNDOADMIN 13:58 → EH 14:07 → 5 18:00 → EH 18:00
PROVIDERS: ADMIT Family Medicine; ATTEND Family Medicine
DX: J15.9 Unspecified bacterial pneumonia (principal); J96.21 Acute and chronic respiratory failure with hypoxia; J44.1 Chronic obstructive pulmonary disease with (acute) exacerbation; I10 Essential (primary) hypertension; E78.5 Hyperlipidemia, unspecified; K21.9 Gastro-esophageal reflux disease without esophagitis; F17.210 Nicotine dependence, cigarettes, uncomplicated; Z99.81 Dependence on supplemental oxygen; Z79.890 Hormone replacement therapy; Z79.51 Long term (current) use of inhaled steroids; Z79.899 Other long term (current) drug therapy; Z88.2 Allergy status to sulfonamides
CPT/HCPCS: 36415; 71010; 71020; 80048; 80053; 81001; 82550; 82553; 82803; 83605; 84484; 85025; 85027; 87040; 93005; 93010; 94640; 94667; 94668; 94799; 96361; 96374; 99291; J1650; J1885; J2930; J3490; J7030; J7060; J7512; J7620

== ENCOUNTER → 2017-02-21 | Outpatient (CLI) | payer BC, MEDICARE, OTHER ==
--- NOTE | 2017-02-21 14:13 | WOMENS IMAGING REPORT ---
EXAM DESCRIPTION: BONE DENSITY HIP/SPINE COMPLETED DATE/TIME: 02/21/2017 1:14 pm REASON FOR STUDY: OSTEOPROSIS;M81.0 M81.0 AGE-RELATED OSTEOPOROSIS W/O CURRENT PATHOLOGICAL FRAC COMPARISON: 02/17/2015 TECHNIQUE: Dual-Energy X-ray Absorptiometry (DEXA) of the AP Spine and Hip. LIMITATIONS: None. FINDINGS: LUMBAR SPINE: The bone mineral density (BMD) measured from L1-L4 in the AP projection correlates with a T-score of -2.7, which is osteoporosis as defined by the World Health Organization. HIP: The bone mineral density (BMD) measured in the left hip correlates with a T-score of -2.7 in the femo ral neck, which is osteoporosis as defined by the World Health Organization. IMPRESSION: 1. LUMBAR SPINE: OSTEOPOROSIS. 2. HIP: OSTEOPOROSIS. COMMENT: The World Health Organization defines low BMD as follows: T-score: Normal: Greater than -1.0 Osteopenia: Between -1.0 and -2.5 Osteoporosis: Less than -2.5 without fractures Established osteoporosis: Less than -2.5 with fractures In general, you may wish to consider: Diagnosis Treatment Follow-up DEXA Normal BMD Prevention 2-3 years Osteopenia Prevention/Therapy 1-2 years Osteoporosis Therapy Yearly TECHNICAL DOCUMENTATION: JOB ID: [id number] [employer]- All Rights Reserved
== END ==
LOC: WI 13:34
PROVIDERS: ATTEND Internal Medicine
DX: M81.0 Age-related osteoporosis without current pathological fracture (principal)
CPT/HCPCS: 77080

== ENCOUNTER → 2017-05-24 | Outpatient (CLI) | payer BC, MEDICARE, OTHER ==
--- NOTE | 2017-05-25 14:35 | WOMENS IMAGING REPORT ---
EXAM DESCRIPTION: 3D SCREENING MAMMO BILAT COMPLETED DATE/TIME: 05/24/2017 8:18 am REASON FOR STUDY: SCREENING MAMMO Z12.31 ENCNTR SCREEN MAMMOGRAM FOR MALIGNANT NEOPLASM OF YRIS COMPARISON: 2011 to 2016 TECHNIQUE: Standard craniocaudal and mediolateral oblique views of each breast recorded using digita l acquisition and breast tomosynthesis. LIMITATIONS: None. FINDINGS: No masses, calcifications or architectural distortion. No areas of suspicion. Read with the assistance of CAD. .[facility] - R2 Cenova Version 1.3 .[facility] Imaging - R2 Cenova Version 1.3 .[facility] Imaging - R2 Cenova Version 2.4 .[facility] [place] Cenova Version 2.4 .[facility] - R2 Process Supervisor Version 9.2 IMPRESSION: NORMAL MAMMOGRAM. BIRADS 1. BREAST DENSITY: b. There are scattered areas of fibroglandular density. BIRAD: 1 NEGATIVE RECOMMENDATION: ROUTINE SCREENING COMMENT: The patient has been notified of the results by letter per SA requirements. Additional no tification policies are in place for contacting patient with suspicious or incomplete findings. Quality ID #225: The [employer] recommends an annual screening mammogram for women aged 40 years or over. This facility utilizes a reminder system to ensure that all patients receive reminder letters, and/or direct phone calls for appointments. This includes reminders for routine scr eening mammograms, diagnostic mammograms, or other Breast Imaging Interventions when appropriate. Th is patient will be placed in the appropriate reminder system. The [employer] (ACR) has developed recommendations for screening MRI of the breast s in certain patient populations, to be used in conjunction with mammography. Breast MRI surveillanc e may be appropriate for women with more than 20% lifetime risk of developing breast cancer as deter mined by genetic testing, significant family history of the disease, or history of mantle radiation f or Hodgkins Disease. ACR Practice Guidelines 2008. DBT Technology DBT is a type of tomographic mammography. With conventional mammography, overlapping breast tissue ma y make lesions difficult to detect, even with good compression. DBT uses an x-ray tube that rotates a round the breast, taking images at different angles. These images are then combined to create thin sl ices of the breast that the radiologist can view as a 3D reconstruction. The [employer] unit can perform full-field digital mammograms (2D imaging); or DBT (3D imaging); or both, in a combination mode that quickly performs both the mammogram and the tomosynthesis scan while the breast is still compressed. PQRS 6045F: Fluoroscopic imaging is not utilized for breast tomosynthesis. TECHNICAL DOCUMENTATION: FINDING NUMBER: (1) ASSESSMENT: (1) JOB ID: [id number] [employer]- All Rights Reserved
== END ==
LOC: WI 07:57
PROVIDERS: ATTEND Surgery
DX: Z12.31 Encounter for screening mammogram for malignant neoplasm of breast (principal)
CPT/HCPCS: 77063; 77067

== ENCOUNTER → 2018-05-31 | Outpatient (CLI) | payer BC, MEDICARE, OTHER ==
--- NOTE | 2018-05-31 14:33 | WOMENS IMAGING REPORT ---
EXAM DESCRIPTION: 3D SCREENING MAMMO BILAT COMPLETED DATE/TIME: 05/31/2018 9:55 am REASON FOR STUDY: Z12.31 SCREENING MAMMO Z12.31 ENCNTR SCREEN MAMMOGRAM FOR MALIGNANT NEOPLASM OF B RE COMPARISON: Multiple since 2008 TECHNIQUE: Standard craniocaudal and mediolateral oblique views of each breast recorded using digita l acquisition and breast tomosynthesis. LIMITATIONS: None. FINDINGS: Findings present which are benign by mammographic criteria. No suspicious masses, calcifi cations or architectural distortion. Pertinent benign findings: Old left breast stereotactic clips. Benign bilateral breast parenchymal a nd skin calcifications Read with the assistance of CAD. .[facility] - R2 Cenova Version 1.3 .[facility] Imaging - R2 Cenova Version 1.3 .[facility] Imaging - R2 Cenova Version 2.4 .[facility] [place]2 Cenova Version 2.4 .[facility] - R2 Aircraft Engine Cylinder Mechanic Version 9.2 Benign mammographic findings may include one or more of the following: Smooth masses, popcorn/rim/co arse calcifications, asymmetries, post-procedure changes, and lesions with long-standing stability. IMPRESSION: BENIGN MAMMOGRAPHIC FINDINGS. BIRADS 2 BREAST DENSITY: b. There are scattered areas of fibroglandular density. BIRAD: 2 BENIGN FINDING(S) RECOMMENDATION: RECOMMENDATION: ROUTINE SCREENING COMMENT: The patient has been notified of the results by letter per SA requirements. Additional no tification policies are in place for contacting patient with suspicious or incomplete findings. Quality ID #225: The [employer] recommends an annual screening mammogram for women aged 40 years or over. This facility utilizes a reminder system to ensure that all patients receive reminder letters, and/or direct phone calls for appointments. This includes reminders for routine scr eening mammograms, diagnostic mammograms, or other Breast Imaging Interventions when appropriate. Th is patient will be placed in the appropriate reminder system. The [employer] (ACR) has developed recommendations for screening MRI of the breast s in certain patient populations, to be used in conjunction with mammography. Breast MRI surveillanc e may be appropriate for women with more than 20% lifetime risk of developing breast cancer as deter mined by genetic testing, significant family history of the disease, or history of mantle radiation f or Hodgkins Disease. ACR Practice Guidelines 2008. DBT Technology DBT is a type of tomographic mammography. With conventional mammography, overlapping breast tissue ma y make lesions difficult to detect, even with good compression. DBT uses an x-ray tube that rotates a round the breast, taking images at different angles. These images are then combined to create thin sl ices of the breast that the radiologist can view as a 3D reconstruction. The [employer] unit can perform full-field digital mammograms (2D imaging); or DBT (3D imaging); or both, in a combination mode that quickly performs both the mammogram and the tomosynthesis scan while the breast is still compressed. PQRS 6045F: Fluoroscopic imaging is not utilized for breast tomosynthesis. TECHNICAL DOCUMENTATION: FINDING NUMBER: (1) ASSESSMENT: (1) JOB ID: [id number] [employer]- All Rights Reserved Reading location - IP/workstation name: [email or web address]-RR2
== END ==
LOC: WI 09:12
PROVIDERS: ATTEND Surgery
DX: Z12.31 Encounter for screening mammogram for malignant neoplasm of breast (principal)
CPT/HCPCS: 77063; 77067

== ENCOUNTER 2018-10-30 19:30 | Emergency (ER) | payer BC, MEDICARE, OTHER ==
[2018-10-30] MEDS ORDERED: HYDROCODONE/ACETAMINOPHEN 5-325 MG TABLET PO ONE (20:39)
--- NOTE | 2018-10-30 21:20 | RADIOLOGY REPORT (SQ) ---
EXAM DESCRIPTION: XR CHEST 2 VIEWS COMPLETED DATE/TME: 10/30/2018 20:39 CLINICAL HISTORY: 58 years, Female, pain COMPARISON: 11/17/2016 chest NUMBER OF VIEWS: 2 TECHNIQUE: 2 view chest LIMITATIONS: None. FINDINGS: Heart size is normal. Fibrotic changes bilaterally. Osteopenia. Old right rib fractures. No confluent airspace opacity. No pneumothorax IMPRESSION: Fibrotic changes bilaterally. copyright 2010 [employer]- All Rights Reserved
--- NOTE | 2018-10-30 21:41 | ER Document Report ---
HPI - HPI Patient complains to provider of: right rib pain Time Seen by Provider: 10/30/18 20:35 Pain Level: 5 Context: Patient is a 58-year-old female history of COPD continues to smoke presents to the emergency department with a generalized cough for the last 2 days. Patient states today she "coughed so hard I think I broke her ribs." States she has some generalized pain in her right lower ribs and right lower back. Patient's denying any falling or injury. Patient states her cough is "sometimes normal with my COPD." Patient's denying any other chest pain, respiratory distress. Patient states that been taking medications as prescribed. Patient states she typically uses oxygen at night or when she "exerts myself." - REPRODUCTIVE Reproductive: DENIES: : Past Medical History - General Information source: Patient - Social History Smoking Status: Current Every Day Smoker Chew tobacco use (# tins/day): No Frequency of alcohol use: None Drug Abuse: None Family History: Reviewed & Not Pertinent Patient has suicidal ideation: No Patient has homicidal ideation: No - Past Medical History Cardiac Medical History: Reports: Hx Hypercholesterolemia, Hx Hypertension Denies: Hx Heart Attack Pulmonary Medical History: Reports: Hx Asthma - COPD, Hx COPD, Hx Pneumonia - 3 YRS AGO Denies: Hx Tuberculosis Neurological Medical History: Denies: Hx Cerebrovascular Accident, Hx Seizures Renal/ Medical History: Denies: Hx Peritoneal Dialysis GI Medical History: Reports: Hx Gastroesophageal Reflux Disease. Denies: Hx Hepatitis, Hx Hiatal Hernia, Hx Ulcer Musculoskeletal Medical History: Reports Hx Arthritis Traumatic Medical History: Reports: Hx Fractures - RIBS-LEFT SIDE Infectious Medical History: Denies: Hx Hepatitis Past Surgical History: Reports: Hx Hysterectomy. Denies: Hx Mastectomy, Hx Open Heart Surgery, Hx Pacemaker - Immunizations Hx Diphtheria, Pertussis, Tetanus Vaccination: No Hx Pneumococcal Vaccination: 03/09/10 Vertical Provider Document - CONSTITUTIONAL Agree With Documented VS: Yes Notes: GENERAL: Alert, interacts well. No acute distress. HEAD: Normocephalic, atraumatic. EYES: Pupils equal, round, and reactive to light. Extraocular movements intact. ENT: Oral mucosa moist, tongue midline. NECK: Full range of motion. Supple. Trachea midline. LUNGS: Clear to auscultation bilaterally, no wheezes, rales, or rhonchi. No respiratory distress. Chest: No crepitus felt, no erythema or ecchymosis noted anterior posterior chest wall. HEART: Regular rate and rhythm. No murmur ABDOMEN: Soft, non-tender. Non-distended. Bowel sounds present in all 4 quadrants. EXTREMITIES: Moves all 4 extremities spontaneously. No edema, normal radial and dorsalis pedis pulses bilaterally. No cyanosis. BACK: no cervical, thoracic, lumbar midline tenderness. No saddle anesthesia, normal distal neurovascular exam. NEUROLOGICAL: Alert and oriented x3. Normal speech. cranial nerves II through XII grossly intact. PSYCH: Normal affect, normal mood. SKIN: Warm, dry, normal turgor. No rashes or lesions noted. - INFECTION CONTROL TRAVEL OUTSIDE OF THE [place] IN LAST 30 DAYS: No Course - Re-evaluation Re-evalutation: 10/30/18 21:37 Chest X-Ray 10/30/18 20:39 IMPRESSION: Fibrotic changes bilaterally. copyright 2010 [employer]- All Rights Reserved Patient's chest x-ray reveals no signs of rib fractures. Patient's lung sounds are clear and equal in all fountain and when she takes a deep breath her SPO2 goes up to 100%. I have discussed with her use of incentive spirometer as unfortunately chest x-rays are not the best imaging modality for rib fractures. Patient is wishing to decline CT imaging at this time. Discussed continued use of pain medication incentive spirometer and close follow-up with primary care provider. Patient voices understanding, stable for discharge. - Vital Signs Vital signs: Temp Pulse Resp BP Pulse Ox 98.8 F 94 18 159/88 H 93 10/30/18 20:06 10/30/18 20:06 10/30/18 20:06 10/30/18 20:06 10/30/18 20:06 Discharge - Discharge Clinical Impression: Rib pain on right side Condition: Stable Disposition: HOME, SELF-CARE Instructions: Chest Wall Pain ([facility]) Additional Instructions: As we discussed you have been seen and treated in the emergency department for right rib pain. Your chest x-ray reveals no signs of fractures at this time. . Unfortunately chest x-rays are not the best imaging modality to reveal rib fractures. In this case I am going to treat you as though your rib is broken. Typical rib fractures here in 4 to 6 weeks. We treat them with oral narcotic pain medicine and an incentive spirometer. Please make sure he continue to take your COPD medications as prescribed. please also make sure you have close follow-up with your primary care provider. Based on your medical history your risk for pneumonia is higher than others. Please also return to the emergency room should you have any other concerns. Prescriptions: Hydrocodone/Acetaminophen [[place] 5-325 mg Tablet] 1 - 2 tab PO Q6 PRN #20 tablet PRN Reason: Forms: Smoking Cessation Education
[2018-10-30 21:46] VITALS: BP 156/83
== END 2018-10-30 21:46 | disposition home or self-care (01) ==
LOC: ER 19:30
DX: R07.81 Pleurodynia (principal); R05 Cough; F17.200 Nicotine dependence, unspecified, uncomplicated; E78.00 Pure hypercholesterolemia, unspecified; I10 Essential (primary) hypertension; J44.9 Chronic obstructive pulmonary disease, unspecified; Z90.710 Acquired absence of both cervix and uterus
CPT/HCPCS: 71046; 99283

== ENCOUNTER 2018-12-03 08:16 | Emergency (ER) | payer BC, MEDICARE, OTHER ==
[2018-12-03] MEDS ORDERED: MORPHINE SULFATE 10 MG/ML INJ IM ONE (09:38)
--- NOTE | 2018-12-03 10:00 | RADIOLOGY REPORT (SQ) ---
EXAM DESCRIPTION: CHEST 2 VIEWS COMPLETED DATE/TIME: 12/03/2018 9:49 am REASON FOR STUDY: R posterior thorax deformity, hx of rib fx COMPARISON: 10/30/2018, 11/17/2016 EXAM PARAMETERS: NUMBER OF VIEWS: two views TECHNIQUE: Digital Frontal and Lateral radiographic views of the chest acquired. RADIATION DOSE: NA LIMITATIONS: none FINDINGS: LUNGS AND PLEURA: No opacities, masses or pneumothorax. No pleural effusion. MEDIASTINUM AND HILAR STRUCTURES: No masses or contour abnormalities. HEART AND VASCULAR STRUCTURES: Heart normal size. No evidence for failure. BONES: Healing rib fractures on the right. Increased callus of the previous studies. HARDWARE: None in the chest. OTHER: No other significant finding. IMPRESSION: Multiple healing right rib fractures with increase callus over the previous study No acute parenchymal opacities. TECHNICAL DOCUMENTATION: JOB ID: [id number] [email or web address]- All Rights Reserved Reading location - IP/workstation name: [email or web address]
--- NOTE | 2018-12-03 13:07 | ER Document Report ---
ED General - General Chief Complaint: Rib Pain Stated Complaint: RIGHT UPPER BACK PAIN Time Seen by Provider: 12/03/18 09:21 Primary Care Provider: YOVANA LABOY MD [Primary Care Provider] - Follow up as needed TRAVEL OUTSIDE OF THE [place] IN LAST 30 DAYS: No - HPI Notes: Patient is a 58-year-old female who presents to the emergency department for evaluation. She was seen here recently, diagnosed with rib fractures. She states she obtained those just from coughing. Last night she was reaching for the remote with her right arm. She reached across her body to the left, felt a pop, and had a sudden increase in pain. She noticed deformity in her posterior thorax at that time. She states that she went to sleep, despite the pain. The deformity persisted today. It is not bigger. She is not short of breath. Her pain is minimally worsened by deep breaths. She has had some nausea when her pain is severe. - Related Data Allergies/Adverse Reactions: Sulfa (Sulfonamide Antibiotics) Allergy (Severe, Verified 12/03/18 08:17) Past Medical History - General Information source: Patient - Social History Smoking Status: Current Every Day Smoker Chew tobacco use (# tins/day): No Frequency of alcohol use: None Drug Abuse: None Family History: Reviewed & Not Pertinent Patient has suicidal ideation: No Patient has homicidal ideation: No - Past Medical History Cardiac Medical History: Reports: Hx Hypercholesterolemia, Hx Hypertension Denies: Hx Heart Attack Pulmonary Medical History: Reports: Hx Asthma - COPD, Hx COPD, Hx Pneumonia - 3 YRS AGO Denies: Hx Tuberculosis Neurological Medical History: Denies: Hx Cerebrovascular Accident, Hx Seizures Renal/ Medical History: Denies: Hx Peritoneal Dialysis GI Medical History: Reports: Hx Gastroesophageal Reflux Disease. Denies: Hx Hepatitis, Hx Hiatal Hernia, Hx Ulcer Musculoskeletal Medical History: Reports Hx Arthritis Traumatic Medical History: Reports: Hx Fractures - RIBS-LEFT SIDE Infectious Medical History: Denies: Hx Hepatitis Past Surgical History: Reports: Hx Hysterectomy. Denies: Hx Mastectomy, Hx Open Heart Surgery, Hx Pacemaker - Immunizations Hx Diphtheria, Pertussis, Tetanus Vaccination: No Hx Pneumococcal Vaccination: 03/09/10 Review of Systems - Review of Systems Constitutional: No symptoms reported EENT: No symptoms reported Cardiovascular: No symptoms reported Respiratory: See HPI Gastrointestinal: No symptoms reported Genitourinary: No symptoms reported Musculoskeletal: No symptoms reported Skin: No symptoms reported Neurological/Psychological: No symptoms reported Physical Exam - Vital signs Vitals: Temp Pulse Resp BP Pulse Ox 98.2 F 107 H 16 135/81 H 96 12/03/18 08:20 12/03/18 08:20 12/03/18 08:20 12/03/18 08:20 12/03/18 08:20 - Notes Notes: Vital signs reviewed, please refer to chart. Head is normocephalic, atraumatic. Pupils equal round, reactive to light. Neck is supple without meningismus. Heart is regular rate and rhythm. Lungs reveal a mildly prolonged expiratory phase, but no wheezes rales or rhonchi. Examination of the posterior thorax yields a mild asymmetry over the entire right posterior thorax. There are no overlying skin changes. No fluctuance. Seems most consistent with mild subluxation of the ribs on the right. No crepitance noted. Abdomen is soft, nontender, normoactive bowel sounds throughout. Extremities without cyanosis, clubbing. Posterior calves are nontender. Peripheral pulses are equal. Skin is warm and dry. Patient is awake, alert, neurological exam is nonfocal. Course - Re-evaluation Re-evalutation: 12/03/18 13:05 Patient presents emergency department for evaluation. She had x-ray performed which revealed no significant obvious rib fractures. No underlying lung injury. Patient oxygenating well. She is feeling improved after pain medication. She Wilbert has an incentive spirometer at home. She is told she needs to continue that. I will send her home with small amount of medication. She is once again told she needs to quit smoking. She voiced understanding. She is to follow-up with primary care, return to the emergency department with worsening or new concerning symptoms. - Vital Signs Vital signs: Temp Pulse Resp BP Pulse Ox 98.2 F 107 H 16 135/81 H 96 12/03/18 08:20 12/03/18 08:20 12/03/18 08:20 12/03/18 08:20 12/03/18 08:20 - Diagnostic Test Radiology reviewed: Reports reviewed Radiology results interpreted by me: 12/03/18 13:10 Chest X-Ray 12/03/18 09:38 IMPRESSION: Multiple healing right rib fractures with increase callus over the previous study No acute parenchymal opacities. Discharge - Discharge Clinical Impression: Right-sided thoracic back pain Qualifiers: Chronicity: acute Qualified Code(s): M54.6 - Pain in thoracic spine Condition: Stable Disposition: HOME, SELF-CARE Instructions: Rib Injuries and Fractures ([facility]) Additional Instructions: There was no evidence of displaced rib fractures, only healing rib fractures, on your x-ray. Your underlying lung looks unchanged. It is still important that you take deep breaths. Please use your incentive spirometer as previously instructed. Take pain medication as needed. Please quit smoking. Follow-up with your primary care physician next week. Return to the emergency department with worsening or new concerning symptoms. Prescriptions: Hydrocodone/Acetaminophen [[place] 5-325 mg Tablet] 1 - 2 tab PO Q6 PRN #20 tablet PRN Reason: Hydrocodone/Acetaminophen [[place] 5-325 mg Tablet] 1 tab PO Q6H PRN #12 tablet PRN Reason: Pain Scale Of 5 Referrals: YOVANA LABOY MD [Primary Care Provider] - Follow up as needed
[2018-12-03 13:34] VITALS: BP 110/69
== END 2018-12-03 13:32 | disposition home or self-care (01) ==
LOC: ER 08:16
DX: M54.6 Pain in thoracic spine (principal); R07.81 Pleurodynia; F17.200 Nicotine dependence, unspecified, uncomplicated; E78.00 Pure hypercholesterolemia, unspecified; I10 Essential (primary) hypertension; J44.9 Chronic obstructive pulmonary disease, unspecified; Z88.2 Allergy status to sulfonamides; Z90.710 Acquired absence of both cervix and uterus
CPT/HCPCS: 99283; 96374; 71046; J2270

== ENCOUNTER → 2019-02-23 | Outpatient (CLI) | payer MEDICARE, OTHER ==
--- NOTE | 2019-02-23 14:52 | WOMENS IMAGING REPORT ---
EXAM DESCRIPTION: BONE DENSITY HIP/SPINE COMPLETED DATE/TIME: 02/23/2019 1:21 pm REASON FOR STUDY: SCREENING FOR OSTEOPOROSIS M81.0 M80.072S AGE-REL OSTEOPOR W CURRENT PATH FX, LEF T ANK/FT, SE M81.0 AGE-RELATED OSTEOPOROSIS W/O CURRENT PATHOLOGICAL FRAC COMPARISON: [id number] TECHNIQUE: Dual-Energy X-ray Absorptiometry (DEXA) of the AP Spine and Hip. LIMITATIONS: None. FINDINGS: LUMBAR SPINE: The bone mineral density (BMD) measured from L1-L4 in the AP projection correlates with a T-score of -2.0, which is osteopenia as defined by the World Health Organization. BMD Change vs Baseline: +18.8% HIP: The bone mineral density (BMD) measured in the left hip correlates with a T-score of -2.4 in the femo ral neck, which is osteopenia as defined by the World Health Organization. BMD Change vs Baseline: +5% 10 year Fracture Risk Assessment: Major Osteoporotic Fracture: 17% Hip Fracture: 2.9% IMPRESSION: 1. LUMBAR SPINE WHO CLASSIFICATION: Osteopenia 2. HIP WHO CLASSIFICATION: Osteopenia OVERALL ASSESSMENT: WHO CLASSIFICATION: Osteopenia COMMENT: The World Health Organization defines low BMD as follows: T-score: Normal: Greater than -1.0 Osteopenia: Between -1.0 and -2.5 Osteoporosis: Less than -2.5 without fractures Established osteoporosis: Less than -2.5 with fractures In general, you may wish to consider: Diagnosis Treatment Follow-up DEXA Normal BMD Prevention 2-3 years Osteopenia Prevention/Therapy 1-2 years Osteoporosis Therapy Yearly TECHNICAL DOCUMENTATION: JOB ID: [id number] [employer]- All Rights Reserved Reading location - IP/workstation name: [email or web address]
== END ==
LOC: WI 12:55
PROVIDERS: ATTEND Internal Medicine
DX: M81.0 Age-related osteoporosis without current pathological fracture (principal)
CPT/HCPCS: 77080

== ENCOUNTER 2019-04-02 11:50 | Inpatient (IN) | payer BC, MEDICARE, OTHER ==
--- NOTE | 2019-04-02 12:43 | ER Document Report ---
ED Medical Screen (RME) - General Chief Complaint: Abdominal Pain Stated Complaint: ABDOMINAL PAIN Time Seen by Provider: 04/02/19 12:39 Primary Care Provider: YOVANA LABOY MD [Primary Care Provider] - Follow up as needed Mode of Arrival: Ambulatory Information source: Patient Notes: 59-year-old female presented to ED for complaint of upper left and mid abdominal pain for the last 2 days. She states she is also had nausea and is vomited x1. Denies any diarrhea stools. She states her last bowel movement was Tuesday. Denies any fevers. She is alert oriented respirations regular and unlabored speaking in full sentences. Abdomen is distended hypoactive bowel sounds tender throughout. Patient has a history of high blood pressure high cholesterol COPD patient states she also has a history of acid reflux and ulcers. I have greeted and performed a rapid initial assessment of this patient. A comprehensive ED assessment and evaluation of the patient, analysis of test results and completion of medical decision making process will be conducted by an additional ED providers. TRAVEL OUTSIDE OF THE [place] IN LAST 30 DAYS: No - Related Data Allergies/Adverse Reactions: Sulfa (Sulfonamide Antibiotics) Allergy (Severe, Verified 12/03/18 08:17) Past Medical History - Past Medical History Cardiac Medical History: Reports: Hx Hypercholesterolemia, Hx Hypertension Denies: Hx Heart Attack Pulmonary Medical History: Reports: Hx Asthma - COPD, Hx COPD, Hx Pneumonia - 3 YRS AGO Denies: Hx Tuberculosis Neurological Medical History: Denies: Hx Cerebrovascular Accident, Hx Seizures Renal/ Medical History: Denies: Hx Peritoneal Dialysis GI Medical History: Reports: Hx Gastroesophageal Reflux Disease. Denies: Hx Hepatitis, Hx Hiatal Hernia, Hx Ulcer Musculoskeltal Medical History: Reports Hx Arthritis Traumatic Medical History: Reports: Hx Fractures - RIBS-LEFT SIDE Infectious Medical History: Denies: Hx Hepatitis Past Surgical History: Reports: Hx Hysterectomy. Denies: Hx Mastectomy, Hx Open Heart Surgery, Hx Pacemaker - Immunizations Hx Diphtheria, Pertussis, Tetanus Vaccination: No Physical Exam - Vital signs Vitals: Temp Pulse Resp BP Pulse Ox 97.4 F 108 H 22 H 159/100 H 94 04/02/19 11:57 04/02/19 11:57 04/02/19 11:57 04/02/19 11:57 04/02/19 11:57 Course - Vital Signs Vital signs: Temp Pulse Resp BP Pulse Ox 97.4 F 108 H 22 H 159/100 H 94 04/02/19 11:57 04/02/19 11:57 04/02/19 11:57 04/02/19 11:57 04/02/19 11:57 Doctor's Discharge - Discharge Referrals: YOVANA LABOY MD [Primary Care Provider] - Follow up as needed
[2019-04-02 13:29] LABS: HEMATOCRIT 48.3 % (36.0-47.0); HEMOGLOBIN 15.9 g/dL (12.0-15.5); MEAN CORPUSCULAR HEMOGLOBIN 30.5 pg (27.0-33.4); MEAN CORPUSCULAR VOLUME 92 fl (80-97); PLATELET COUNT 333 10^3/uL (150-450); RED BLOOD COUNT 5.22 10^6/uL (3.72-5.28); RED CELL DISTRIBUTION WIDTH 15.5 % (11.5-14.0); WHITE BLOOD COUNT 23.7 10^3/uL (4.0-10.5)
--- NOTE | 2019-04-02 13:41 | RADIOLOGY REPORT (SQ) ---
EXAM DESCRIPTION: ACUTE ABDOMEN SERIES COMPLETED DATE/TIME: 04/02/2019 1:20 pm REASON FOR STUDY: Distended abdomen with abdominal pain. COMPARISON: Chest x-ray dated 12/03/2018. NUMBER OF VIEWS: Three views. TECHNIQUE: Frontal chest, supine abdomen and upright/decubitus abdomen radiographic images acquired. LIMITATIONS: None. FINDINGS: CHEST: Lungs clear of infiltrates. Chronic interstitial changes. FREE AIR: None. No abnormal gas collections. BOWEL GAS PATTERN: Nonobstructive pattern. No dilated loops or air fluid levels. Prominent stool thr oughout the colon. CALCIFICATIONS: No suspicious calcifications. HARDWARE: None in the abdomen. SOFT TISSUES: No gross mass or suggestion of organomegaly. BONES: No acute fracture. Old rib fractures. Chronic changes in the spine. No worrisome bone lesio ns. OTHER: No other significant finding. IMPRESSION: NO RADIOGRAPHIC EVIDENCE FOR ACUTE ABDOMINAL DISEASE. PROMINENT STOOL THROUGHOUT THE CO LAUREN, POSSIBLE CONSTIPATION. TECHNICAL DOCUMENTATION: JOB ID: [id number] [employer]- All Rights Reserved Reading location - IP/workstation name: [email or web address]
[2019-04-02 13:45] LABS: APPEARANCE,URINE CLEAR; BILIRUBIN,URINE NEGATIVE (NEGATIVE); COLOR,URINE YELLOW; GLUCOSE, URINE NEGATIVE (NEGATIVE); KETONES,URINE TRACE mg/dL (NEGATIVE); PROTEIN,URINE 30 mg/dL (NEGATIVE); URINE SPECIFIC GRAVITY 1.026; UROBILINOGEN,URINE NEGATIVE mg/dL (<2.0)
[2019-04-02 13:52] LABS: ALBUMIN 4.6 g/dL (3.5-5.0); ALKALINE PHOSPHATASE 73 U/L (38-126); ANION GAP 13 (5-19); ASPARTATE AMINO TRANSFERASE 20 U/L (14-36); BILIRUBIN,DIRECT 0.3 mg/dL (0.0-0.4); BILIRUBIN,TOTAL 0.5 mg/dL (0.2-1.3); BLOOD UREA NITROGEN 25 mg/dL (7-20); CALCIUM 10.9 mg/dL (8.4-10.2); CARBON DIOXIDE 24 mmol/L (22-30); CHLORIDE 100 mmol/L (98-107); GLUCOSE 123 mg/dL (75-110); POTASSIUM 4.4 mmol/L (3.6-5.0); TOTAL PROTEIN 7.6 g/dL (6.3-8.2)
[2019-04-02 14:00] LABS: ABSOLUTE LYMPHOCYTES# (MANUAL) 2.1 10^3/uL (0.5-4.7); ABSOLUTE MONOCYTES # (MANUAL) 1.7 10^3/uL (0.1-1.4); BASOPHILS % (MANUAL) 0 % (0-2); EOSINOPHILS % (MANUAL) 0 % (0-6); LYMPHOCYTES % (MANUAL) 8 % (13-45); MONOCYTES % (MANUAL) 7 % (3-13); SEGMENTED NEUTROPHILS % (MAN) 84 % (42-78); TOTAL CELLS COUNTED 100
[2019-04-02 14:01] LABS: ANISOCYTOSIS SLIGHT; OVALOCYTES SLIGHT; PLATELET COMMENT ADEQUATE; POIKILOCYTOSIS SLIGHT; STOMATOCYTES SLIGHT
[2019-04-02] MEDS ORDERED: ONDANSETRON 4 MG TAB.RAPDIS PO ONE (15:27)
[2019-04-02] MEDS ORDERED: HYDROMORPHONE HCL 2 MG TABLET PO ONE (15:27)
[2019-04-02] MEDS ORDERED: HYDROMORPHONE HCL INJ/PF 2 MG/ML AMPULE IV ONE ×2 (17:30→20:13)
[2019-04-02] MEDS: NORMAL SALINE 1000 ML 1,000 ML IV PRN ×2 (18:04→19:22)
--- NOTE | 2019-04-02 18:32 | ER Document Report ---
ED General - General Chief Complaint: Abdominal Pain Stated Complaint: ABDOMINAL PAIN Time Seen by Provider: 04/02/19 12:39 Mode of Arrival: Ambulatory Notes: 59-year-old female presents with upper abdominal pain with nausea/vomiting for the past 2 days. Patient states last movement was 5 days however patient is still passing gas. Patient denies diarrhea, fever, chills. Patient denies heavy alcohol drinking. Patient denies any surgical history to abdomen. TRAVEL OUTSIDE OF THE [place] IN LAST 30 DAYS: No - Related Data Allergies/Adverse Reactions: Sulfa (Sulfonamide Antibiotics) Allergy (Severe, Verified 12/03/18 08:17) Past Medical History - General Information source: Patient - Social History Smoking Status: Former Smoker Family History: Reviewed & Not Pertinent Patient has suicidal ideation: No Patient has homicidal ideation: No - Past Medical History Cardiac Medical History: Reports: Hx Hypercholesterolemia, Hx Hypertension Denies: Hx Heart Attack Pulmonary Medical History: Reports: Hx Asthma - COPD, Hx COPD, Hx Pneumonia - 3 YRS AGO Denies: Hx Tuberculosis Neurological Medical History: Denies: Hx Cerebrovascular Accident, Hx Seizures Renal/ Medical History: Denies: Hx Peritoneal Dialysis GI Medical History: Reports: Hx Gastroesophageal Reflux Disease. Denies: Hx Hepatitis, Hx Hiatal Hernia, Hx Ulcer Musculoskeletal Medical History: Reports Hx Arthritis Traumatic Medical History: Reports: Hx Fractures - RIBS-LEFT SIDE Infectious Medical History: Denies: Hx Hepatitis Past Surgical History: Reports: Hx Hysterectomy. Denies: Hx Mastectomy, Hx Open Heart Surgery, Hx Pacemaker - Immunizations Hx Diphtheria, Pertussis, Tetanus Vaccination: No Hx Pneumococcal Vaccination: 03/09/10 Review of Systems - Review of Systems Notes: Constitutional: Negative for fever. HENT: Negative for sore throat. Eyes: Negative for visual changes. Cardiovascular: Negative for chest pain. Respiratory: Negative for shortness of breath. Gastrointestinal: Positive for abdominal pain, vomiting. Negative for diarrhea. Genitourinary: Negative for dysuria. Musculoskeletal: Negative for back pain. Skin: Negative for rash. Neurological: Negative for headaches, weakness or numbness. 10 point ROS negative except as marked above and in HPI. Physical Exam - Vital signs Vitals: Temp Pulse Resp BP Pulse Ox 97.4 F 108 H 22 H 159/100 H 94 04/02/19 11:57 04/02/19 11:57 04/02/19 11:57 04/02/19 11:57 04/02/19 11:57 - Notes Notes: GENERAL: Well-appearing, well-nourished and uncomfortable. HEAD: Atraumatic, normocephalic. NECK: Normal range of motion, supple without lymphadenopathy or JVD. LUNGS: Breath sounds clear to auscultation bilaterally and equal. No wheezes rales or rhonchi. HEART: Regular rate and rhythm without murmurs, rubs or gallops. ABDOMEN: Soft, tenderness to upper abdomen. Mild guarding, no rebound. No masses appreciated. EXTREMITIES: Normal range of motion, no pitting or edema. No clubbing or cyanosis. NEUROLOGICAL: Cranial nerves II through XII grossly intact. Normal speech, normal gait. PSYCH: Normal mood, normal affect. SKIN: Warm, Dry, normal turgor, no rashes or lesions noted. Course - Re-evaluation Re-evalutation: 04/02/19 59-year-old female who presents with upper abdominal pain with nausea/vomiting. Patient's lab work shows elevated lipase indicating pancreatitis. Patient denies any history of pancreatitis. Patient denies any history of liver disease, heavy alcohol abuse, gallbladder issues. WBC is also significantly elevated. H&H also elevated. Abdomen x-ray shows constipation. Discussed with attending, Dr. Powell, who also evaluated pt and recommended LDH, lactic, and CT abdomen/pelvis with IV contrast. 04/02/19 19:57 CT abdomen/pelvis shows pancreatitis without pseudocyst. Discussed with Dr. Jarvis Merritt, hospitalist, who states pt needs to have fecal disimpaction done first and then to call him back. 04/02/19 20:29 Dr. Powell attempted to digitally disimpact pt. Enema ordered. Discussed with Dr. Powell who will speak to Dr. Merritt. - Vital Signs Vital signs: Temp Pulse Resp BP Pulse Ox 97.4 F 117 H 20 128/87 H 97 04/03/19 07:27 04/03/19 07:27 04/03/19 07:27 04/03/19 07:27 04/03/19 07:27 - Laboratory Result Diagrams: 04/03/19 05:30 04/03/19 05:30 Laboratory results interpreted by me: 04/02/19 04/02/19 04/02/19 13:06 13:06 13:06 WBC 23.7 H Hgb 15.9 H Hct 48.3 H RDW 15.5 H Seg Neuts % (Manual) 84 H Lymphocytes % (Manual) 8 L Abs Neuts (Manual) 19.9 H Abs Monocytes (Manual) 1.7 H BUN 25 H Glucose 123 H Calcium 10.9 H Lipase 1848.2 H Urine Protein 30 H Urine Ketones TRACE H Discharge - Discharge Clinical Impression: Pancreatitis Qualifiers: Chronicity: acute Pancreatitis type: unspecified pancreatitis type Acute pancreatitis complication: unspecified Qualified Code(s): K85.90 - Acute pancreatitis without necrosis or infection, unspecified Condition: Stable Disposition: ADMITTED INPATIENT Admitting Provider: René (Hospitalist)
--- NOTE | 2019-04-02 19:14 | RADIOLOGY REPORT (SQ) ---
EXAM DESCRIPTION: CT ABD/PELVIS WITH IV ONLY COMPLETED DATE/TIME: 04/02/2019 6:55 pm REASON FOR STUDY: abd pain, elevated lipase, nausea/vomiting COMPARISON: None. TECHNIQUE: CT scan of the abdomen and pelvis performed using helical scanning technique with dynamic intravenous contrast injection. No oral contrast. Images reviewed with lung, soft tissue, and bone windows. Reconstructed coronal and sagittal MPR images reviewed. Delayed images for evaluation of the urinary system also acquired. All images stored on PACS. All CT scanners at this facility use dose modulation, iterative reconstruction, and/or weight based d osing when appropriate to reduce radiation dose to as low as reasonably achievable (ALARA). [facility]: Dose Right [facility]: CareDose [facility]: Dose Right [facility]: Teradose 4D [facility]: [facility] CONTRAST TYPE AND DOSE: contrast/concentration: Isovue 350.00 mg/ml; Total Contrast Delivered: 67.0 ml; Total Saline Delivered: 38.4 ml RENAL FUNCTION: BUN 25 creatinine 0.6 RADIATION DOSE: CT Rad equipment meets quality standard of care and radiation dose reduction techniq ues were employed. CTDIvol: 7.6 - 10.3 mGy. DLP: 873 mGy-cm.. LIMITATIONS: None. FINDINGS: LOWER CHEST: Mild centrilobular emphysematous changes in the lower lobes, left more than r ight. LIVER: The liver is diffusely hypoattenuating. No masses. SPLEEN: Normal size. No focal lesions. PANCREAS: There is pancreatic and peripancreatic edema in the region of the body and tail of the panc reas. No definable fluid collection seen to suggest pseudocyst. GALLBLADDER: No identified stones by CT criteria. No inflammatory changes to suggest cholecystitis. ADRENAL GLANDS: No significant masses or asymmetry. RIGHT KIDNEY AND URETER: No solid masses. No significant calcifications. No hydronephrosis or hyd roureter. LEFT KIDNEY AND URETER: No solid masses. No significant calcifications. No hydronephrosis or hydr oureter. AORTA AND VESSELS: No aneurysm. No dissection. Renal arteries, SMA, celiac without stenosis. RETROPERITONEUM: No retroperitoneal adenopathy, hemorrhage or masses. BOWEL AND PERITONEAL CAVITY: No masses or inflammatory changes. No free fluid or peritoneal masses. APPENDIX: Not identified. PELVIS: No mass. No free fluid. Normal bladder. ABDOMINAL WALL: No masses. No hernias. BONES: No significant or acute findings. OTHER: No other significant finding. IMPRESSION: 1. Pancreatitis with no evidence pancreatic pseudocyst. 2. Hepatic steatosis. 3. Pulmonary emphysema. TECHNICAL DOCUMENTATION: JOB ID: [id number] Quality ID # [id number]: Final reports with documentation of one or more dose reduction techniques (e.g., Au tomated exposure control, adjustment of the mA and/or kV according to patient size, use of iterative reconstruction technique) 2010 [employer]- All Rights Reserved Reading location - IP/workstation name: [email or web address]
[2019-04-02] MEDS ORDERED: FENTANYL CITRATE INJ/PF 100 MCG/2 ML AMPUL IV ONE (19:23)
[2019-04-02] MEDS ORDERED: METOCLOPRAMIDE HCL INJ/PF 10 MG/2 ML SDV IV ONE (19:29)
[2019-04-02] MEDS ORDERED: MAGNESIUM HYDROXIDE SUSP 30 ML UDCUP PO PRN (20:36)
[2019-04-02] MEDS ORDERED: IPRATROPIUM/ALBUTEROL 0.5-2.5 MG/3 ML AMPUL NEB PRN (20:36)
[2019-04-02] MEDS ORDERED: MAG HYDROX/AL HYDROX/SIMETH SUSP 30 ML UDCUP PO PRN (20:36)
[2019-04-02] MEDS ORDERED: NORMAL SALINE 1000 ML 1,000 ML IV SCH (20:45)
[2019-04-02] MEDS: LACTULOSE SYRUP 20 GM/30 ML UDCUP PO SCH (20:57)
[2019-04-02] MEDS ORDERED: ERTAPENEM SODIUM 1 GM in NORMAL SALINE 50 ML IV SCH (22:00)
[2019-04-02] MEDS ORDERED: HYDRALAZINE HCL INJ/PF 20 MG/1 ML SDV IV PRN (22:15)
[2019-04-02] MEDS ORDERED: ERTAPENEM SODIUM INJ 1 GM VIAL IV PRN (22:49)
[2019-04-02] MEDS: HEPARIN SOD (PORCINE) 5,000 UNIT/ML 1 ML VIAL SUBCUT SCH (23:01)
[2019-04-03] MEDS: IPRATROPIUM/ALBUTEROL 0.5-2.5 MG/3 ML AMPUL NEB SCH ×4 (02:04→19:56)
[2019-04-03] MEDS ORDERED: NICOTINE 7 MG/24 HR PATCH.TD24 TD ONE (03:45)
[2019-04-03] MEDS ORDERED: LACTULOSE SYRUP 20 GM/30 ML UDCUP PR ONE (03:45)
[2019-04-03] MEDS ORDERED: LACTULOSE SYRUP 20 GM/30 ML UDCUP ONE (03:52)
[2019-04-03] MEDS: KETOROLAC TROMETHAMINE INJ/PF 30 MG/1 ML SDV IV PRN ×4 (03:53→23:03)
--- NOTE | 2019-04-03 04:06 | PDOC H&P ---
History of Present Illness Admission Date/PCP: 04/02/19 20:44 YOVANA LABOY MD Patient complains of: Abdominal pain and nausea History of Present Illness: RITO FINK is a 59 year old female with a past medical history of hypertension, oxygen dependent COPD, pulmonary fibrosis, chronic pain, tobacco and opiate dependence presents with 2 days of nausea vomiting and abdominal pain. In the emergency room she is found to have abdominal distention, leukocytosis, lipase of 1800, CT reveals fecal impaction and pancreatitis without mass, abscess or necrosis. She receives 4 mg of Dilaudid and referred to the hospitalist for admission. Patient admits struggling to move her bowels and cannot recall her last normal bowel movement. Past Medical History Cardiac Medical History: Reports: Hyperlipidema, Hypertension Denies: Myocardial Infarction Pulmonary Medical History: Reports: Asthma - COPD, Chronic Obstructive Pulmonary Disease (COPD), Pneumonia - 3 YRS AGO Denies: Tuberculosis Neurological Medical History: Denies: Seizures GI Medical History: Reports: Gastroesophageal Reflux Disease Denies: Hepatitis, Hiatal Hernia Musculoskeltal Medical History: Reports: Arthritis Psychiatric Medical History: Reports: Depression Hematology: Denies: Anemia, Sickle Cell Disease Past Surgical History Past Surgical History: Reports: Hysterectomy Denies: Amputation, Mastectomy, Pacemaker Social History Information Source: Patient Smoking Status: Current Every Day Smoker Cigarettes Packs Per Day: 10 Electronic Cigarette use?: No Frequency of Alcohol Use: None Hx Recreational Drug Use: No Drugs: None Hx Prescription Drug Abuse: No - Advance Directive Resuscitation Status: Full Code Family History Family History: Hypertension Parental Family History Reviewed: Yes Children Family History Reviewed: Yes Sibling(s) Family History Reviewed.: Yes Medication/Allergy Home Medications: Amlodipine Besylate [Norvasc 10 mg Tablet] 10 mg PO DAILY 04/02/19 Bupropion HCl [Wellbutrin Xl 300mg 24hr Tablet] 300 mg PO DAILY 04/02/19 Cyclobenzaprine HCl [Flexeril 10 mg Tablet] 10 mg PO TIDP PRN 04/02/19 Escitalopram Oxalate [Lexapro] 20 mg PO DAILY 04/02/19 Fenofibrate Nanocrystallized [Tricor 145 mg Tablet] 145 mg PO DAILY 04/02/19 Fluticasone Propionate [Flonase Nasal [place] 50 Mcg/[place] 16 gm] 2 spray NASL DAILY 04/02/19 Levalbuterol Tartrate [Levalbuterol Tartrate Hfa] 2 puff IH Q6 04/02/19 Promethazine HCl [Phenergan 25 mg Tablet] 25 mg PO TIDP PRN 04/02/19 Rabeprazole Sodium [Aciphex] 20 mg PO BID 04/02/19 Rosuvastatin Calcium [Crestor 20 mg Tablet] 20 mg PO QHS 04/02/19 Tiotropium Br/Olodaterol HCl [Stiolto Respimat Inhal [place]] 2 puff IH DAILY 04/02/19 Allergies/Adverse Reactions: Sulfa (Sulfonamide Antibiotics) Allergy (Severe, Verified 12/03/18 08:17) Review of Systems Constitutional: PRESENT: as per HPI, anorexia, fatigue, weakness, weight gain Eyes: ABSENT: visual disturbances Ears: ABSENT: hearing changes Cardiovascular: ABSENT: chest pain, dyspnea on exertion, edema, orthropnea, palpitations Respiratory: ABSENT: cough, hemoptysis Gastrointestinal: PRESENT: as per HPI, abdominal pain, bloating, constipation, nausea, vomiting. ABSENT: diarrhea Genitourinary: ABSENT: dysuria, hematuria Musculoskeletal: ABSENT: joint swelling Integumentary: ABSENT: rash, wounds Neurological: ABSENT: abnormal gait, abnormal speech, confusion, dizziness, focal weakness, syncope Psychiatric: ABSENT: anxiety, depression, homidical ideation, suicidal ideation Endocrine: ABSENT: cold intolerance, heat intolerance, polydipsia, polyuria Hematologic/Lymphatic: ABSENT: easy bleeding, easy bruising Physical Exam Vital Signs: Temp Pulse Resp BP Pulse Ox 97.5 F 115 H 16 134/72 H 88 L 04/03/19 03:08 04/03/19 03:08 04/03/19 03:08 04/03/19 03:08 04/03/19 03:08 Intake & Output 04/01/19 04/02/19 04/03/19 11:59 11:59 11:59 Intake Total 2049 Balance 2049 Weight 58.2 kg General appearance: PRESENT: cooperative, severe distress, thin, well-developed, well-nourished Head exam: PRESENT: atraumatic, normocephalic Eye exam: PRESENT: conjunctiva pink, EOMI, PERRLA. ABSENT: scleral icterus Ear exam: PRESENT: normal external ear exam Mouth exam: PRESENT: moist, tongue midline Neck exam: ABSENT: carotid bruit, JVD, lymphadenopathy, thyromegaly Respiratory exam: PRESENT: crackles, decreased breath sounds, symmetrical, tachypnea. ABSENT: rales, rhonchi, wheezes Cardiovascular exam: PRESENT: irregular rhythm, +S1, systolic murmur, tachycardia Pulses: PRESENT: normal dorsalis pedis pul Vascular exam: PRESENT: normal capillary refill GI/Abdominal exam: PRESENT: diminished bowel sounds, distended, firm, tenderness. ABSENT: soft Rectal exam: PRESENT: deferred Extremities exam: PRESENT: full ROM. ABSENT: calf tenderness, clubbing, pedal edema Neurological exam: PRESENT: alert, awake, oriented to person, oriented to place, oriented to time, oriented to situation, CN II-XII grossly intact. ABSENT: motor sensory deficit Psychiatric exam: PRESENT: appropriate affect, normal mood. ABSENT: homicidal ideation, suicidal ideation Skin exam: PRESENT: dry, intact, warm. ABSENT: cyanosis, rash Results Laboratory Results: 04/02/19 13:06 04/02/19 13:06 04/02/19 04/02/19 04/02/19 13:06 13:06 13:06 WBC 23.7 H RBC 5.22 Hgb 15.9 H Hct 48.3 H MCV 92 MCH 30.5 MCHC 33.0 RDW 15.5 H Plt Count 333 Seg Neutrophils % Not Reportable Sodium 137.4 Potassium 4.4 Chloride 100 Carbon Dioxide 24 Anion Gap 13 BUN 25 H Creatinine 0.66 Est GFR ( Amer) > 60 Glucose 123 H Lactic Acid Calcium 10.9 H Total Bilirubin 0.5 AST 20 Alkaline Phosphatase 73 Total Protein 7.6 Albumin 4.6 Lipase 1848.2 H Urine Color YELLOW Urine Appearance CLEAR Urine pH 5.0 Ur Specific [place] 1.026 Urine Protein 30 H Urine Glucose (UA) NEGATIVE Urine Ketones TRACE H Urine Blood NEGATIVE Urine RBC (Auto) 0 04/02/19 19:00 WBC RBC Hgb Hct MCV MCH MCHC RDW Plt Count Seg Neutrophils % Sodium Potassium Chloride Carbon Dioxide Anion Gap BUN Creatinine Est GFR ( Amer) Glucose Lactic Acid 1.0 Calcium Total Bilirubin AST Alkaline Phosphatase Total Protein Albumin Lipase Urine Color Urine Appearance Urine pH Ur Specific [place] Urine Protein Urine Glucose (UA) Urine Ketones Urine Blood Urine RBC (Auto) 04/02/19 13:06 Troponin I < 0.012 Impressions: Acute Abdomen Series 04/02/19 12:43 IMPRESSION: NO RADIOGRAPHIC EVIDENCE FOR ACUTE ABDOMINAL DISEASE. PROMINENT STOOL THROUGHOUT THE COLON, POSSIBLE CONSTIPATION. Abdomen/Pelvis CT 04/02/19 18:14 IMPRESSION: 1. Pancreatitis with no evidence pancreatic pseudocyst. 2. Hepatic steatosis. 3. Pulmonary emphysema. Assessment and Plan - Diagnosis (1) Fecal impaction Is this a current diagnosis for this admission?: Yes Plan: Likely secondary to narcotic dependence, n.p.o. except for meds, enemas every 12, symptomatic management. Surgical consult unproductive. (2) Diverticulitis Is this a current diagnosis for this admission?: Yes Plan: Suspected underlying diverticulitis, intolerant of p.o. antibiotics, ertapenem, symptomatic management. (3) COPD exacerbation Is this a current diagnosis for this admission?: Yes Plan: Incentive spirometry, albuterol and Atrovent, (4) Pancreatitis Qualifiers: Chronicity: acute Pancreatitis type: unspecified pancreatitis type Acute pancreatitis complication: unspecified Qualified Code(s): K85.90 - Acute pancreatitis without necrosis or infection, unspecified Is this a current diagnosis for this admission?: Yes Plan: LFTs unremarkable, likely secondary to #1, bowel rest, symptomatic management IV fluids. Follow-up chemistry - Time Time Spent with patient: 35 or more minutes - Inpatient Certification Medical Necessity: Need Close Monitoring Due to Risk of Patient Decompensation
[2019-04-03] MEDS: HEPARIN SOD (PORCINE) 5,000 UNIT/ML 1 ML VIAL SUBCUT SCH ×2 (05:53→13:51)
[2019-04-03 06:37] LABS: HEMATOCRIT 43.8 % (36.0-47.0); HEMOGLOBIN 14.6 g/dL (12.0-15.5); MEAN CORPUSCULAR HEMOGLOBIN 30.9 pg (27.0-33.4); MEAN CORPUSCULAR HGB CONC 33.4 g/dL (32.0-36.0); MEAN CORPUSCULAR VOLUME 92 fl (80-97); PLATELET COUNT 260 10^3/uL (150-450); RED BLOOD COUNT 4.73 10^6/uL (3.72-5.28); RED CELL DISTRIBUTION WIDTH 15.4 % (11.5-14.0); WHITE BLOOD COUNT 22.5 10^3/uL (4.0-10.5)
[2019-04-03 06:42] LABS: ABSOLUTE LYMPHOCYTES# (MANUAL) 1.1 10^3/uL (0.5-4.7); ABSOLUTE MONOCYTES # (MANUAL) 0.7 10^3/uL (0.1-1.4); BASOPHILS % (MANUAL) 0 % (0-2); EOSINOPHILS % (MANUAL) 0 % (0-6); LYMPHOCYTES % (MANUAL) 5 % (13-45); MONOCYTES % (MANUAL) 3 % (3-13); SEGMENTED NEUTROPHILS % (MAN) 92 % (42-78); TOTAL CELLS COUNTED 100
[2019-04-03 06:43] LABS: ANION GAP 13 (5-19); ANISOCYTOSIS SLIGHT; BLOOD UREA NITROGEN 20 mg/dL (7-20); CALCIUM 9.3 mg/dL (8.4-10.2); CARBON DIOXIDE 19 mmol/L (22-30); CHLORIDE 109 mmol/L (98-107); GLUCOSE 119 mg/dL (75-110); POTASSIUM 4.1 mmol/L (3.6-5.0); TOXIC GRANULATION 1+; TOXIC VACUOLATION PRESENT
[2019-04-03 06:44] LABS: PLATELET COMMENT ADEQUATE
[2019-04-03] MEDS: AMLODIPINE BESYLATE 10 MG TABLET PO SCH (09:19)
[2019-04-03] MEDS: LACTULOSE SYRUP 20 GM/30 ML UDCUP PO SCH ×2 (09:19→17:25)
[2019-04-03] MEDS: FLUTICASONE NASAL SPRAY 50 MCG/SPRY 120 SPRAY/16 GM NASL SCH (09:19)
[2019-04-03] MEDS: CYCLOBENZAPRINE HCL 10 MG TABLET PO PRN ×2 (09:19→19:35)
[2019-04-03] MEDS: MINERAL OIL ENEMA 133 ML PR SCH ×2 (09:21→17:25)
[2019-04-03] MEDS: ESCITALOPRAM OXALATE 10 MG TABLET PO SCH (12:44)
[2019-04-03] MEDS: BUPROPION HCL 100 MG TABLET PO SCH ×2 (14:13→21:11)
[2019-04-03] MEDS: METRONIDAZOLE 500 MG/NS RTU 500 MG/100 ML RTUPB IV SCH ×2 (17:30→23:03)
[2019-04-03] MEDS: ACETAMINOPHEN 325 MG TABLET PO PRN (19:35)
[2019-04-03] MEDS: ATORVASTATIN CALCIUM 40 MG TABLET PO SCH (21:11)
[2019-04-03] MEDS: CIPROFLOXACIN 400 MG/D5W RTU 400 MG/200 ML RTUPB IV SCH (21:12)
[2019-04-03] MEDS ORDERED: (PENDING PHARMACY ID) (Rosuvastatin Calcium [Crestor 20 Mg Tablet] 20 MG) PO SCH (22:00)
[2019-04-04] MEDS: IPRATROPIUM/ALBUTEROL 0.5-2.5 MG/3 ML AMPUL NEB SCH ×4 (02:16→20:54)
[2019-04-04 05:25] LABS: ABSOLUTE EOSINOPHILS # (AUTO) 0.1 10^3/uL (0.0-0.6); ABSOLUTE LYMPHOCYTES (AUTO) 1.4 10^3/uL (0.5-4.7); ABSOLUTE MONOCYTES (AUTO) 0.7 10^3/uL (0.1-1.4); ABSOLUTE NEUT (AUTO) 8.9 10^3/uL (1.7-8.2); BASOPHILS % (AUTO) 0.2 % (0-2); EOSINOPHILS % (AUTO) 0.7 % (0-6); HEMATOCRIT 37.9 % (36.0-47.0); HEMOGLOBIN 12.7 g/dL (12.0-15.5); LYMPHOCYTES % (AUTO) 12.4 % (13-45); MEAN CORPUSCULAR HEMOGLOBIN 30.8 pg (27.0-33.4); MEAN CORPUSCULAR HGB CONC 33.4 g/dL (32.0-36.0); MEAN CORPUSCULAR VOLUME 92 fl (80-97); MONOCYTES % (AUTO) 6.1 % (3-13); PLATELET COUNT 191 10^3/uL (150-450); RED BLOOD COUNT 4.11 10^6/uL (3.72-5.28); RED CELL DISTRIBUTION WIDTH 15.1 % (11.5-14.0); SEGMENTED NEUTROPHILS % (AUTO) 80.6 % (42-78); TOTAL CELLS COUNTED % (AUTO) 100 %; WHITE BLOOD COUNT 11.1 10^3/uL (4.0-10.5)
[2019-04-04 05:38] LABS: ANION GAP 12 (5-19); BLOOD UREA NITROGEN 16 mg/dL (7-20); CALCIUM 8.8 mg/dL (8.4-10.2); CARBON DIOXIDE 23 mmol/L (22-30); CHLORIDE 103 mmol/L (98-107); POTASSIUM 3.4 mmol/L (3.6-5.0)
[2019-04-04 05:45] LABS: GLUCOSE 67 mg/dL (75-110)
[2019-04-04] MEDS: KETOROLAC TROMETHAMINE INJ/PF 30 MG/1 ML SDV IV PRN ×3 (06:26→18:54)
[2019-04-04] MEDS: CYCLOBENZAPRINE HCL 10 MG TABLET PO PRN (06:26)
[2019-04-04] MEDS: BUPROPION HCL 100 MG TABLET PO SCH ×3 (06:26→21:24)
[2019-04-04] MEDS: HEPARIN SOD (PORCINE) 5,000 UNIT/ML 1 ML VIAL SUBCUT SCH ×3 (06:27→21:25)
[2019-04-04] MEDS: METRONIDAZOLE 500 MG/NS RTU 500 MG/100 ML RTUPB IV SCH ×3 (06:27→17:33)
--- NOTE | 2019-04-04 08:42 | RADIOLOGY REPORT (SQ) ---
EXAM DESCRIPTION: KUB/ABDOMEN (SINGLE VIEW) COMPLETED DATE/TIME: 04/04/2019 8:16 am REASON FOR STUDY: obstipation COMPARISON: AP supine and upright views of the abdomen from 04/02/2019. NUMBER OF VIEWS: One view. TECHNIQUE: Supine radiographic image of the abdomen acquired. LIMITATIONS: None. FINDINGS: BOWEL GAS PATTERN: There is a moderate to severe colo-rectal stool burden. There are no d ilated loops of bowel CALCIFICATIONS: No calcifications projecting within the renal fossae or along the expected course of the ureters. SOFT TISSUES: No abnormality. HARDWARE: None in the abdomen. BONES: Mild dextroconvex scoliosis of the lumbar spine with findings of degenerative spondylosis. OTHER: No other finding. IMPRESSION: Moderate to severe colorectal stool burden. TECHNICAL DOCUMENTATION: JOB ID: [id number] [employer]- All Rights Reserved Reading location - IP/workstation name: [email or web address]
[2019-04-04] MEDS: LACTULOSE SYRUP 20 GM/30 ML UDCUP PO SCH (09:23)
[2019-04-04] MEDS: MINERAL OIL ENEMA 133 ML PR SCH ×2 (09:24→17:35)
[2019-04-04] MEDS: ESCITALOPRAM OXALATE 10 MG TABLET PO SCH (09:35)
[2019-04-04] MEDS: AMLODIPINE BESYLATE 10 MG TABLET PO SCH (09:35)
[2019-04-04] MEDS: CIPROFLOXACIN 400 MG/D5W RTU 400 MG/200 ML RTUPB IV SCH ×2 (09:35→21:24)
[2019-04-04] MEDS: FLUTICASONE NASAL SPRAY 50 MCG/SPRY 120 SPRAY/16 GM NASL SCH (09:36)
[2019-04-04] MEDS: NICOTINE 7 MG/24 HR PATCH.TD24 TD SCH (09:36)
[2019-04-04] MEDS: FENOFIBRATE NANOCRYSTALLIZED 145 MG TABLET PO SCH (09:36)
[2019-04-04] MEDS ORDERED: MAGNESIUM CITRATE 296 ML BOTTLE PO ONE ×2 (09:46→13:00)
--- NOTE | 2019-04-04 09:53 | PDOC PROGRESS REPORT ---
Subjective Progress Note for:: 04/03/19 Subjective:: Still with abdominal pain. Reports some bowel movement. Reason For Visit: OPIATE DEP, N/V FECAL IMPACTION, DIVERTICULITIS Physical Exam Vital Signs: Temp Pulse Resp BP Pulse Ox 98.4 F 102 H 20 118/72 95 04/04/19 03:49 04/04/19 07:00 04/04/19 03:49 04/04/19 03:49 04/04/19 03:49 Intake & Output 04/03/19 04/04/19 04/05/19 06:59 06:59 06:59 Intake Total 2049 125 Balance 2049 1250 Weight 56.3 kg 56.1 kg Results Laboratory Results: 04/04/19 04:46 04/04/19 04:46 04/04/19 04/04/19 04:46 04:46 WBC 11.1 H RBC 4.11 Hgb 12.7 Hct 37.9 MCV 92 MCH 30.8 MCHC 33.4 RDW 15.1 H Plt Count 191 Seg Neutrophils % 80.6 H Sodium 138.0 Potassium 3.4 L Chloride 103 Carbon Dioxide 23 Anion Gap 12 BUN 16 Creatinine 0.59 Est GFR ( Amer) > 60 Glucose 67 L Calcium 8.8 Magnesium 2.2 Lipase 230.5 04/02/19 13:06 Troponin I < 0.012 Impressions: Acute Abdomen Series 04/02/19 12:43 IMPRESSION: NO RADIOGRAPHIC EVIDENCE FOR ACUTE ABDOMINAL DISEASE. PROMINENT STOOL THROUGHOUT THE COLON, POSSIBLE CONSTIPATION. Abdomen/Pelvis CT 04/02/19 18:14 IMPRESSION: 1. Pancreatitis with no evidence pancreatic pseudocyst. 2. Hepatic steatosis. 3. Pulmonary emphysema. KUB X-Ray 04/04/19 08:00 IMPRESSION: Moderate to severe colorectal stool burden. Assessment and Plan - Diagnosis (1) Fecal impaction Is this a current diagnosis for this admission?: Yes Plan: Likely secondary to narcotic dependence, n.p.o. except for meds, enemas every 12, symptomatic management. Surgical consult unproductive. 04/03/2019-the patient started having some bowel movements. His only she is h aving bowel movements we will hold off on the enemas. I will increase the lactulose. I will repeat a KUB film tomorrow to assess for retained stool. (2) Diverticulitis Is this a current diagnosis for this admission?: Yes Plan: Suspected underlying diverticulitis, intolerant of p.o. antibiotics, ertapenem, symptomatic management. 04/03/2019-the patient still has some abdominal discomfort. A discussion with pharmacy regarding antibiotic stewardship prompting a changing from the ertapenem to ciprofloxacin and Flagyl. (3) Pancreatitis Qualifiers: Chronicity: acute Pancreatitis type: unspecified pancreatitis type Acute pancreatitis complication: unspecified Qualified Code(s): K85.90 - Acute pancreatitis without necrosis or infection, unspecified Is this a current diagnosis for this admission?: Yes Plan: LFTs unremarkable, likely secondary to #1, bowel rest, symptomatic management IV fluids. Follow-up chemistry 04/03/2019-the patient is n.p.o. except for ice chips. Consider clear liquids. There is no obvious cause of the pancreatitis however in addition to the above, I will check her medications for possible adverse effect. (4) COPD exacerbation Is this a current diagnosis for this admission?: Yes Plan: Incentive spirometry, albuterol and Atrovent, 04/03/2019-continue current regimen. - Time Time Spent with patient: 15-24 minutes Medications reviewed and adjusted accordingly: Yes
[2019-04-04] MEDS ORDERED: BISACODYL 10 MG SUPP.RECT PR PRN (16:09)
--- NOTE | 2019-04-04 16:18 | PDOC PROGRESS REPORT ---
Subjective Progress Note for:: 04/04/19 Subjective:: Patient still has epigastric pain. Her lipase is normal. By x-ray she still had significant feces. We have tried citrate of magnesia and I will add Dulcolax. Pain control is marginal but I did explain that we are trying to avoid narcotics as they will worsen the constipation. Lastly, when she coughs she has noticed very very slight tinge of pink on her tissue. Reason For Visit: OPIATE DEP, N/V FECAL IMPACTION, DIVERTICULITIS Physical Exam Vital Signs: Temp Pulse Resp BP Pulse Ox 98.8 F 106 H 18 115/72 94 04/04/19 08:04 04/04/19 14:00 04/04/19 13:38 04/04/19 08:04 04/04/19 13:38 Intake & Output 04/03/19 04/04/19 04/05/19 06:59 06:59 06:59 Intake Total 2049 1250 470 Balance 2049 1250 470 Weight 56.3 kg 56.1 kg 56.1 kg General appearance: PRESENT: no acute distress, cooperative, well-developed Head exam: PRESENT: atraumatic, normocephalic Eye exam: PRESENT: conjunctiva pink. ABSENT: scleral icterus Ear exam: PRESENT: normal external ear exam. ABSENT: bleeding, drainage Mouth exam: PRESENT: moist, tongue midline Respiratory exam: PRESENT: clear to auscultation lizette - Except faint rales at bases, rales - Faint rales at bases, symmetrical, unlabored. ABSENT: rhonchi, tachypnea, wheezes Cardiovascular exam: PRESENT: RRR, +S1, +S2 GI/Abdominal exam: PRESENT: distended, normal bowel sounds, soft, tenderness - Mostly epigastrium Rectal exam: PRESENT: deferred Extremities exam: ABSENT: joint swelling, pedal edema Musculoskeletal exam: PRESENT: ambulatory, normal inspection Neurological exam: PRESENT: alert, altered, oriented to person, oriented to place, oriented to time, oriented to situation, CN II-XII grossly intact Psychiatric exam: PRESENT: flat affect. ABSENT: agitated, anxious Focused psych exam: ABSENT: delusional, restlessness Skin exam: PRESENT: dry, normal color, warm. ABSENT: rash Results Laboratory Results: 04/04/19 04:46 04/04/19 04:46 04/04/19 04/04/19 04:46 04:46 WBC 11.1 H RBC 4.11 Hgb 12.7 Hct 37.9 MCV 92 MCH 30.8 MCHC 33.4 RDW 15.1 H Plt Count 191 Seg Neutrophils % 80.6 H Sodium 138.0 Potassium 3.4 L Chloride 103 Carbon Dioxide 23 Anion Gap 12 BUN 16 Creatinine 0.59 Est GFR ( Amer) > 60 Glucose 67 L Calcium 8.8 Magnesium 2.2 Lipase 230.5 04/02/19 13:06 Troponin I < 0.012 Impressions: Acute Abdomen Series 04/02/19 12:43 IMPRESSION: NO RADIOGRAPHIC EVIDENCE FOR ACUTE ABDOMINAL DISEASE. PROMINENT STOOL THROUGHOUT THE COLON, POSSIBLE CONSTIPATION. Abdomen/Pelvis CT 04/02/19 18:14 IMPRESSION: 1. Pancreatitis with no evidence pancreatic pseudocyst. 2. Hepatic steatosis. 3. Pulmonary emphysema. KUB X-Ray 04/04/19 08:00 IMPRESSION: Moderate to severe colorectal stool burden. Assessment and Plan - Diagnosis (1) Fecal impaction Is this a current diagnosis for this admission?: Yes Plan: Likely secondary to narcotic dependence, n.p.o. except for meds, enemas every 12, symptomatic management. Surgical consult unproductive. 04/03/2019-the patient started having some bowel movements. His only she is having bowel movements we will hold off on the enemas. I will increase the lactulose. I will repeat a KUB film tomorrow to assess for retained stool. 04/04/2019-abdominal x-ray still shows moderate to severe colorectal stool. The patient did receive a bottle of mag citrate. I am also going to schedule a du plex suppository for and Tuesday. She may need soapsuds enema until clear. (2) Diverticulitis Is this a current diagnosis for this admission?: Yes Plan: Suspected underlying diverticulitis, intolerant of p.o. antibiotics, ertapenem, symptomatic management. 04/03/2019-the patient still has some abdominal discomfort. A discussion with pharmacy regarding antibiotic stewardship prompting a changing from the ertapenem to ciprofloxacin and Flagyl. 04/04/2019-on her current antibiotic regimen her white blood cell count is almost to normal. Continue antibiotics as ordered. (3) Pancreatitis Qualifiers: Chronicity: acute Pancreatitis type: unspecified pancreatitis type Acute pancreatitis complication: unspecified Qualified Code(s): K85.90 - Acute pancreatitis without necrosis or infection, unspecified Is this a current diagnosis for this admission?: Yes Plan: LFTs unremarkable, likely secondary to #1, bowel rest, symptomatic management IV fluids. Follow-up chemistry 04/03/2019-the patient is n.p.o. except for ice chips. Consider clear liquids. There is no obvious cause of the pancreatitis however in addition to the above, I will check her medications for possible adverse effect. 04/04/2019-I will start clear liquid diet today. Lipase is now normal. There is still no obvious etiology for her pancreatitis. By CT scan the body and tail were the affected areas. (4) COPD exacerbation Is this a current diagnosis for this admission?: Yes Plan: Incentive spirometry, albuterol and Atrovent, 04/03/2019-continue current regimen. 04/04/2019-breathing is stable. I will start the patient on Trelegy inhaler in place of her scheduled DuoNeb's. This will help transition her back to her home regimen. (5) Hypokalemia Is this a current diagnosis for this admission?: Yes Plan: 04/04/2019-serum potassium is slightly low. She will receive 20 mEq of potassium chloride now and then every morning. - Time Time Spent with patient: 15-24 minutes Medications reviewed and adjusted accordingly: Yes Anticipated discharge: Home
[2019-04-04] MEDS ORDERED: POTASSIUM CHLORIDE 10 MEQ TABLET.ER PO ONE (16:30)
[2019-04-04] MEDS ORDERED: BISACODYL 5 MG TABEC PO ONE (16:45)
[2019-04-04] MEDS: ATORVASTATIN CALCIUM 40 MG TABLET PO SCH (21:24)
[2019-04-04] MEDS ORDERED: IPRATROPIUM/ALBUTEROL 0.5-2.5 MG/3 ML AMPUL NEB PRN (22:02)
[2019-04-05] MEDS: METRONIDAZOLE 500 MG/NS RTU 500 MG/100 ML RTUPB IV SCH ×5 (00:53→23:04)
[2019-04-05] MEDS: KETOROLAC TROMETHAMINE INJ/PF 30 MG/1 ML SDV IV PRN ×4 (00:55→21:46)
[2019-04-05] MEDS: HEPARIN SOD (PORCINE) 5,000 UNIT/ML 1 ML VIAL SUBCUT SCH ×3 (06:13→21:46)
[2019-04-05] MEDS: BUPROPION HCL 100 MG TABLET PO SCH ×3 (06:14→21:46)
[2019-04-05 09:40] LABS: HEMATOCRIT 35.1 % (36.0-47.0); HEMOGLOBIN 11.7 g/dL (12.0-15.5); MEAN CORPUSCULAR HEMOGLOBIN 30.9 pg (27.0-33.4); MEAN CORPUSCULAR HGB CONC 33.4 g/dL (32.0-36.0); MEAN CORPUSCULAR VOLUME 93 fl (80-97); PLATELET COUNT 191 10^3/uL (150-450); RED BLOOD COUNT 3.79 10^6/uL (3.72-5.28); RED CELL DISTRIBUTION WIDTH 15.3 % (11.5-14.0); WHITE BLOOD COUNT 9.7 10^3/uL (4.0-10.5)
[2019-04-05 10:03] LABS: ANION GAP 10 (5-19); BLOOD UREA NITROGEN 10 mg/dL (7-20); CALCIUM 8.9 mg/dL (8.4-10.2); CARBON DIOXIDE 24 mmol/L (22-30); CHLORIDE 103 mmol/L (98-107); GLUCOSE 100 mg/dL (75-110); POTASSIUM 3.9 mmol/L (3.6-5.0)
[2019-04-05] MEDS: POTASSIUM CHLORIDE 20 MEQ PACKET PO SCH (11:29)
[2019-04-05] MEDS: CIPROFLOXACIN 400 MG/D5W RTU 400 MG/200 ML RTUPB IV SCH ×2 (11:30→21:45)
[2019-04-05] MEDS: NICOTINE 7 MG/24 HR PATCH.TD24 TD SCH (11:33)
[2019-04-05] MEDS: BISACODYL 10 MG SUPP.RECT PR SCH (11:33)
[2019-04-05] MEDS: FENOFIBRATE NANOCRYSTALLIZED 145 MG TABLET PO SCH (11:35)
[2019-04-05] MEDS: ESCITALOPRAM OXALATE 10 MG TABLET PO SCH (11:35)
[2019-04-05] MEDS: AMLODIPINE BESYLATE 10 MG TABLET PO SCH (11:35)
[2019-04-05] MEDS: FLUTICASONE/UMECLIDIN/VILANTER 100-62.5-25 MCG/DOSE IH SCH (11:36)
[2019-04-05] MEDS: FLUTICASONE NASAL SPRAY 50 MCG/SPRY 120 SPRAY/16 GM NASL SCH (11:36)
[2019-04-05] MEDS: METOPROLOL SUCCINATE 25 MG TAB.SR.24H PO SCH (11:39)
--- NOTE | 2019-04-05 12:48 | PDOC PROGRESS REPORT ---
Subjective Progress Note for:: 04/05/19 Reason For Visit: OPIATE DEP, N/V FECAL IMPACTION, DIVERTICULITIS Physical Exam Vital Signs: Temp Pulse Resp BP Pulse Ox 97.8 F 90 16 124/68 95 04/05/19 07:57 04/05/19 11:46 04/05/19 11:46 04/05/19 07:57 04/05/19 11:46 Intake & Output 04/04/19 04/05/19 04/06/19 06:59 06:59 06:59 Intake Total 1250 1350 100 Balance 1250 1350 100 Weight 56.1 kg 58.8 kg General appearance: PRESENT: no acute distress, cooperative Neck exam: ABSENT: JVD Respiratory exam: PRESENT: clear to auscultation lizette, symmetrical, unlabored. ABSENT: tachypnea, wheezes Cardiovascular exam: PRESENT: RRR, +S1, +S2. ABSENT: systolic murmur, tachycardia GI/Abdominal exam: PRESENT: normal bowel sounds, soft, tenderness. ABSENT: firm, rebound, rigid Neurological exam: PRESENT: alert, awake Results Laboratory Results: 04/05/19 09:05 04/05/19 09:05 04/05/19 04/05/19 09:05 09:05 WBC 9.7 RBC 3.79 Hgb 11.7 L Hct 35.1 L MCV 93 MCH 30.9 MCHC 33.4 RDW 15.3 H Plt Count 191 Sodium 137.4 Potassium 3.9 Chloride 103 Carbon Dioxide 24 Anion Gap 10 BUN 10 Creatinine 0.59 Est GFR ( Amer) > 60 Glucose 100 Calcium 8.9 Magnesium 2.3 04/02/19 13:06 Troponin I < 0.012 Impressions: Acute Abdomen Series 04/02/19 12:43 IMPRESSION: NO RADIOGRAPHIC EVIDENCE FOR ACUTE ABDOMINAL DISEASE. PROMINENT STOOL THROUGHOUT THE COLON, POSSIBLE CONSTIPATION. Abdomen/Pelvis CT 04/02/19 18:14 IMPRESSION: 1. Pancreatitis with no evidence pancreatic pseudocyst. 2. Hepatic steatosis. 3. Pulmonary emphysema. KUB X-Ray 04/04/19 08:00 IMPRESSION: Moderate to severe colorectal stool burden. Assessment and Plan - Diagnosis (1) Pancreatitis Qualifiers: Chronicity: acute Pancreatitis type: unspecified pancreatitis type Acute pancreatitis complication: unspecified Qualified Code(s): K85.90 - Acute pancreatitis without necrosis or infection, unspecified Is this a current diagnosis for this admission?: Yes Plan: LFTs unremarkable, likely secondary to #1, bowel rest, symptomatic management IV fluids. Follow-up chemistry 04/03/2019-the patient is n.p.o. except for ice chips. Consider clear liquids. There is no obvious cause of the pancreatitis however in addition to the above, I will check her medications for possible adverse effect. 04/04/2019-I will start clear liquid diet today. Lipase is now normal. There is still no obvious etiology for her pancreatitis. By CT scan the body and tail were the affected areas. 03/28/2019-advance diet. Patient tolerated clear liquids. Check right upper quadrant ultrasound to assess biliary tree given new onset pancreatitis. (2) Diverticulitis Is this a current diagnosis for this admission?: Yes Plan: Suspected underlying diverticulitis, intolerant of p.o. antibiotics, ertapenem, symptomatic management. 04/03/2019-the patient still has some abdominal discomfort. A discussion with pharmacy regarding antibiotic stewardship prompting a changing from the ertap enem to ciprofloxacin and Flagyl. 04/04/2019-on her current antibiotic regimen her white blood cell count is almost to normal. Continue antibiotics as ordered. 04/05/2019-continue short course of antibiotics (3) COPD exacerbation Is this a current diagnosis for this admission?: Yes Plan: Incentive spirometry, albuterol and Atrovent, 04/03/2019-continue current regimen. 04/04/2019-breathing is stable. I will start the patient on Trelegy inhaler in place of her scheduled DuoNeb's. This will help transition her back to her home regimen. 04/05/2019-seems to be just a very mild exacerbation. Nebs as needed. No need for steroids. (4) Fecal impaction Is this a current diagnosis for this admission?: Yes Plan: Likely secondary to narcotic dependence, n.p.o. except for meds, enemas every 12, symptomatic management. Surgical consult unproductive. 04/03/2019-the patient started having some bowel movements. His only she is having bowel movements we will hold off on the enemas. I will increase the lactulose. I will repeat a KUB film tomorrow to assess for retained stool. 04/04/2019-abdominal x-ray still shows moderate to severe colorectal stool. The patient did receive a bottle of mag citrate. I am also going to schedule a duplex suppository for and Tuesday. She may need soapsuds enema until clear. 04/05/2019-patient had 2 moderate-sized bowel movements yesterday. - Time Time Spent with patient: 15-24 minutes
--- NOTE | 2019-04-05 15:08 | RADIOLOGY REPORT (SQ) ---
EXAM DESCRIPTION: U/S ABDOMEN LTD W/DOPPLER COMPLETED DATE/TIME: 04/05/2019 1:34 pm REASON FOR STUDY: RUQ US. Assess biliary joesph and pancreas COMPARISON: Abdominal film 04/04/2019, 04/02/2019 CT abdomen pelvis 04/02/2019 TECHNIQUE: Dynamic and static grayscale images acquired of the abdomen and recorded on PACS. Additio nal selected color Doppler and spectral images recorded. LIMITATIONS: Body habitus, midline bowel gas FINDINGS: PANCREAS: Not well seen. Inflammation along the pancreatic tail demonstrated on 9 CT is not evaluated today LIVER: Echogenic from fatty infiltration. LIVER VASCULATURE: Normal directional flow of the main portal vein and hepatic veins. GALLBLADDER: No stones. Normal wall thickness. No pericholecystic fluid. ULTRASOUND-DETECTED LY'S SIGN: Negative. INTRAHEPATIC DUCTS AND COMMON DUCT: CBD and intrahepatic ducts normal caliber. No filling defects. D istal common duct at the bam hepatis not well seen. INFERIOR VENA CAVA: Not well seen AORTA: No aneurysm RIGHT KIDNEY: Normal size. Normal echogenicity. No solid or suspicious masses. No hydronephrosis. No calcifications. PERITONEAL AND RIGHT PLEURAL SPACE: No ascites or effusions. OTHER: No other significant findings. IMPRESSION: Pancreas not visualized No gallstones, gallbladder wall thickening or pericholecystic fluid Fatty liver TECHNICAL DOCUMENTATION: JOB ID: [id number]- All Rights Reserved Reading location - IP/workstation name: [email or web address]
[2019-04-05] MEDS: ATORVASTATIN CALCIUM 40 MG TABLET PO SCH (21:46)
[2019-04-06] MEDS: ACETAMINOPHEN 325 MG TABLET PO PRN (01:22)
[2019-04-06 05:56] LABS: ANION GAP 10 (5-19); BLOOD UREA NITROGEN 8 mg/dL (7-20); CALCIUM 9.2 mg/dL (8.4-10.2); CARBON DIOXIDE 21 mmol/L (22-30); CHLORIDE 111 mmol/L (98-107); GLUCOSE 75 mg/dL (75-110); POTASSIUM 4.2 mmol/L (3.6-5.0)
[2019-04-06] MEDS: METRONIDAZOLE 500 MG/NS RTU 500 MG/100 ML RTUPB IV SCH ×2 (06:11→12:55)
[2019-04-06] MEDS: BUPROPION HCL 100 MG TABLET PO SCH ×2 (06:12→13:44)
[2019-04-06] MEDS: HEPARIN SOD (PORCINE) 5,000 UNIT/ML 1 ML VIAL SUBCUT SCH ×2 (06:12→13:44)
[2019-04-06] MEDS: CIPROFLOXACIN 400 MG/D5W RTU 400 MG/200 ML RTUPB IV SCH (09:48)
[2019-04-06] MEDS: ESCITALOPRAM OXALATE 10 MG TABLET PO SCH (09:49)
[2019-04-06] MEDS: AMLODIPINE BESYLATE 10 MG TABLET PO SCH (09:49)
[2019-04-06] MEDS: METOPROLOL SUCCINATE 25 MG TAB.SR.24H PO SCH (09:49)
[2019-04-06] MEDS: FENOFIBRATE NANOCRYSTALLIZED 145 MG TABLET PO SCH (09:49)
[2019-04-06] MEDS: NICOTINE 7 MG/24 HR PATCH.TD24 TD SCH (09:49)
[2019-04-06] MEDS: FLUTICASONE/UMECLIDIN/VILANTER 100-62.5-25 MCG/DOSE IH SCH (09:49)
[2019-04-06] MEDS: POTASSIUM CHLORIDE 20 MEQ PACKET PO SCH (09:49)
[2019-04-06] MEDS: BISACODYL 10 MG SUPP.RECT PR SCH (09:50)
[2019-04-06] MEDS: FLUTICASONE NASAL SPRAY 50 MCG/SPRY 120 SPRAY/16 GM NASL SCH (09:50)
--- NOTE | 2019-04-06 10:06 | PDOC DISCHARGE SUMMARY ---
Impression - Admit/DC Date/PCP Admission Date/Primary Care Provider: 04/02/19 20:44 YOVANA LABOY MD Discharge Date: 04/06/19 - Discharge Diagnosis (1) Pancreatitis Is this a current diagnosis for this admission?: Yes (2) Diverticulitis Is this a current diagnosis for this admission?: Yes (3) COPD exacerbation Is this a current diagnosis for this admission?: Yes (4) Fecal impaction Is this a current diagnosis for this admission?: Yes (5) Bleeding hemorrhoid Is this a current diagnosis for this admission?: Yes (6) Hypokalemia Is this a current diagnosis for this admission?: Yes - Assessment Summary: See below for summary of patient's hospital course and issues addressed during this hospitalization: (1) Pancreatitis Qualifiers: Chronicity: acute Pancreatitis type: unspecified pancreatitis type Acute pancreatitis complication: unspecified Qualified Code(s): K85.90 - Acute pancreatitis without necrosis or infection, unspecified Is this a current diagnosis for this admission?: Yes Plan: LFTs unremarkable, likely secondary to #1, bowel rest, symptomatic management IV fluids. Follow-up chemistry 04/03/2019-the patient is n.p.o. except for ice chips. Consider clear liquids. There is no obvious cause of the pancreatitis however in addition to the above, I will check her medications for possible adverse effect. 04/04/2019-I will start clear liquid diet today. Lipase is now normal. There is still no obvious etiology for her pancreatitis. By CT scan the body and tail were the affected areas. 04/05/2019-advance diet. Patient tolerated clear liquids. Check right upper quadrant ultrasound to assess biliary tree given new onset pancreatitis. 04/06/2019-lipase is now normal. Patient's pain is significantly improved. Abdominal ultrasound showed no evidence of gallstones, normal common bile duct without evidence of any blockage in patient's biliary tree. Patient stable for discharge. Encouraged to advance diet slowly and to start with low-fat/less greasy/low residue diet for now and advance as tolerated. Of note patient has been able to tolerate current diet. (2) Diverticulitis Is this a current diagnosis for this admission?: Yes Plan: Suspected underlying diverticulitis, intolerant of p.o. antibiotics, ertapenem, symptomatic management. 04/03/2019-the patient still has some abdominal discomfort. A discussion with pharmacy regarding antibiotic stewardship prompting a changing from the ertapenem to ciprofloxacin and Flagyl. 04/04/2019-on her current antibiotic regimen her white blood cell count is almost to normal. Continue antibiotics as ordered. 04/05/2019-continue short course of antibiotics 04/06/2019-patient's pain is significantly improved. Patient is stable for discharge. I will continue a short regimen of ciprofloxacin and Flagyl for 3 more days for treatment of suspected recurrent acute diverticulitis. (3) COPD exacerbation Is this a current diagnosis for this admission?: Yes Plan: Incentive spirometry, albuterol and Atrovent, 04/03/2019-continue current regimen. 04/04/2019-breathing is stable. I will start the patient on Trelegy inhaler in place of her scheduled DuoNeb's. This will help transition her back to her home regimen. 04/05/2019-seems to be just a very mild exacerbation. Nebs as needed. No need for steroids. 04/06/2019-COPD exacerbation has resolved. No need for steroids. Discharging patient home on tiotropium PRN rescue inhalers. Patient will follow-up with her PCP for further care. (4) Fecal impaction Is this a current diagnosis for this admission?: Yes Plan: Likely secondary to narcotic dependence, n.p.o. except for meds, enemas every 12, symptomatic management. Surgical consult unproductive. 04/03/2019-the patient started having some bowel movements. Now she is having bowel movements we will hold off on the enemas. I will increase the lactulose. I will repeat a KUB film tomorrow to assess for retained stool. 04/04/2019-abdominal x-ray still shows moderate to severe colorectal stool. The patient did receive a bottle of mag citrate. I am also going to schedule a duplex suppository for and Tuesday. She may need soapsuds enema until clear. 04/05/2019-patient had 2 moderate-sized bowel movements yesterday 04/06/2019-patient had small bowel movements this morning but reports that the abdominal somewhat loose. All laxatives will be discontinued. Will put patient on a regimen of [place] stool softeners with docusate/senna to be taking while at home in order to prevent recurrence of fecal impaction as she continues to take her narcotics. (5) Hemorrhoids Patient reports occasional mild streaks of blood when she wipes but nothing in the toilet bowl. Patient has hemorrhoids which are likely worsened by patient's constipation or fecal impaction. I have given patient a prescription for Preparation H as well as stool softeners. - Additional Information Resuscitation Status: Full Code Discharge Diet: As Tolerated Discharge Activity: Activity As Tolerated Referrals: YOVANA LABOY MD [Primary Care Provider] - (Please make a follow up appointment for 1-2 weeks from discharge.) Prescriptions: Ciprofloxacin HCl [Cipro] 500 mg PO DAILY #3 tablet Sennosides/Docusate Sodium [Docusate Sodium-Senna Tablet] 1 each PO DAILY #30 tablet Metronidazole [Flagyl 500 mg Tablet] 500 mg PO TID 3 Days #9 tablet Phenyleph/Pramoxin/Glycr/W.pet [Preparation H Cream] 1 ahfu RC TID 5 Days cream..g. Guaifenesin/D-Methorphan Hb [Robitussin Dm S-F Cough Syrup] 10 ml PO Q6HP PRN #118 ml PRN Reason: Home Medications: Amlodipine Besylate [Norvasc 10 mg Tablet] 10 mg PO DAILY 04/02/19 Bupropion HCl [Wellbutrin Xl 300mg 24hr Tablet] 300 mg PO DAILY 04/02/19 Cyclobenzaprine HCl [Flexeril 10 mg Tablet] 10 mg PO TIDP PRN 04/02/19 Escitalopram Oxalate [Lexapro] 20 mg PO DAILY 04/02/19 Fenofibrate Nanocrystallized [Tricor 145 mg Tablet] 145 mg PO DAILY 04/02/19 Fluticasone Propionate [Flonase Nasal [place] 50 Mcg/[place] 16 gm] 2 spray NASL DAILY 04/02/19 Levalbuterol Tartrate [Levalbuterol Tartrate Hfa] 2 puff IH Q6 04/02/19 Promethazine HCl [Phenergan 25 mg Tablet] 25 mg PO TIDP PRN 04/02/19 Rabeprazole Sodium [Aciphex] 20 mg PO BID 04/02/19 Rosuvastatin Calcium [Crestor 20 mg Tablet] 20 mg PO QHS 04/02/19 Tiotropium Br/Olodaterol HCl [Stiolto Respimat Inhal [place]] 2 puff IH DAILY 04/02/19 Hydrocodone/Acetaminophen [[place] 10-325 mg Tablet] 1 tab PO BID PRN 04/03/19 Ciprofloxacin HCl [Cipro] 500 mg PO DAILY #3 tablet 04/06/19 Guaifenesin/D-Methorphan Hb [Robitussin Dm S-F Cough Syrup] 10 ml PO Q6HP PRN #118 ml 04/06/19 Metronidazole [Flagyl 500 mg Tablet] 500 mg PO TID 3 Days #9 tablet 04/06/19 Phenyleph/Pramoxin/Glycr/W.pet [Preparation H Cream] 1 ahfu RC TID 5 Days cream..g. 04/06/19 Sennosides/Docusate Sodium [Docusate Sodium-Senna Tablet] 1 each PO DAILY #30 tablet 04/06/19 History of Present Illiness History of Present Illness: RITO FINK is a 59 year old female with a past medical history of hyperten bertrand, oxygen dependent COPD, pulmonary fibrosis, chronic pain, tobacco and opiate dependence presents with 2 days of nausea vomiting and abdominal pain. In the emergency room she is found to have abdominal distention, leukocytosis, lipase of 1800, CT reveals fecal impaction and pancreatitis without mass, abscess or necrosis. She receives 4 mg of Dilaudid and referred to the hospitalist for admission. Patient admits struggling to move her bowels and cannot recall her last normal bowel movement. Physical Exam Vital Signs: Temp Pulse Resp BP Pulse Ox 97.2 F 82 18 122/72 94 04/06/19 07:18 04/06/19 07:18 04/06/19 07:18 04/06/19 07:18 04/06/19 07:18 Intake & Output 04/05/19 04/06/19 04/07/19 06:59 06:59 06:59 Intake Total 1350 2750 Balance 1350 2750 Weight 58.8 kg 59.8 kg General appearance: PRESENT: no acute distress, cooperative Cardiovascular exam: PRESENT: +S1, +S2 GI/Abdominal exam: PRESENT: normal bowel sounds, soft. ABSENT: guarding, rebound, rigid, tenderness Rectal exam: PRESENT: hemorrhoids Neurological exam: PRESENT: alert, awake Results Laboratory Results: WBC 9.7 10^3/uL (4.0-10.5) 04/05/19 09:05 RBC 3.79 10^6/uL (3.72-5.28) 04/05/19 09:05 Hgb 11.7 g/dL (12.0-15.5) L 04/05/19 09:05 Hct 35.1 % (36.0-47.0) L 04/05/19 09:05 MCV 93 fl (80-97) 04/05/19 09:05 MCH 30.9 pg (27.0-33.4) 04/05/19 09:05 MCHC 33.4 g/dL (32.0-36.0) 04/05/19 09:05 RDW 15.3 % (11.5-14.0) H 04/05/19 09:05 Plt Count 191 10^3/uL (150-450) 04/05/19 09:05 Lymph % (Auto) 12.4 % (13-45) L 04/04/19 04:46 Spink % (Auto) 6.1 % (3-13) 04/04/19 04:46 Eos % (Auto) 0.7 % (0-6) 04/04/19 04:46 Baso % (Auto) 0.2 % (0-2) 04/04/19 04:46 Absolute Neuts (auto) 8.9 10^3/uL (1.7-8.2) H 04/04/19 04:46 Absolute Lymphs (auto) 1.4 10^3/uL (0.5-4.7) 04/04/19 04:46 Absolute Monos (auto) 0.7 10^3/uL (0.1-1.4) 04/04/19 04:46 Absolute Eos (auto) 0.1 10^3/uL (0.0-0.6) 04/04/19 04:46 Absolute Basos (auto) 0.0 10^3/uL (0.0-0.2) 04/04/19 04:46 Total Counted 100 04/03/19 05:30 Seg Neutrophils % 80.6 % (42-78) H 04/04/19 04:46 Seg Neuts % (Manual) 92 % (42-78) H 04/03/19 05:30 Lymphocytes % (Manual) 5 % (13-45) L 04/03/19 05:30 Atypical Lymphs % 1 % (0) 04/02/19 13:06 Monocytes % (Manual) 3 % (3-13) 04/03/19 05:30 Eosinophils % (Manual) 0 % (0-6) 04/03/19 05:30 Basophils % (Manual) 0 % (0-2) 04/03/19 05:30 Abs Neuts (Manual) 20.7 10^3/uL (1.7-8.2) H 04/03/19 05:30 Abs Lymphs (Manual) 1.1 10^3/uL (0.5-4.7) 04/03/19 05:30 Abs Monocytes (Manual) 0.7 10^3/uL (0.1-1.4) 04/03/19 05:30 Absolute Eos (Manual) 0.0 10^3/uL (0.0-0.6) 04/03/19 05:30 Abs Basophils (Manual) 0.0 10^3/uL (0.0-0.2) 04/03/19 05:30 Toxic Granulation 1+ 04/03/19 05:30 Toxic Vacuolation PRESENT 04/03/19 05:30 Platelet Comment ADEQUATE 04/03/19 05:30 Poikilocytosis SLIGHT 04/02/19 13:06 Anisocytosis SLIGHT 04/03/19 05:30 Ovalocytes SLIGHT 04/02/19 13:06 Stomatocytes SLIGHT 04/02/19 13:06 Sodium 142.3 mmol/L (137-145) 04/06/19 05:11 Potassium 4.2 mmol/L (3.6-5.0) 04/06/19 05:11 Chloride 111 mmol/L (98-107) H 04/06/19 05:11 Carbon Dioxide 21 mmol/L (22-30) L 04/06/19 05:11 Anion Gap 10 (5-19) 04/06/19 05:11 BUN 8 mg/dL (7-20) 04/06/19 05:11 Creatinine 0.63 mg/dL (0.52-1.25) 04/06/19 05:11 Est GFR ( Amer) > 60 (>60) 04/06/19 05:11 Est GFR (MDRD) Non-Af > 60 (>60) 04/06/19 05:11 Glucose 75 mg/dL (75-110) 04/06/19 05:11 POC Glucose 78 mg/dL (70-110) 04/04/19 05:53 Lactic Acid 1.0 mmol/L (0.7-2.1) 04/02/19 19:00 Calcium 9.2 mg/dL (8.4-10.2) 04/06/19 05:11 Magnesium 2.3 mg/dL (1.6-2.3) 04/06/19 05:11 Total Bilirubin 0.5 mg/dL (0.2-1.3) 04/02/19 13:06 Direct Bilirubin 0.3 mg/dL (0.0-0.4) 04/02/19 13:06 Neonat Total Bilirubin Not Reportable 04/02/19 13:06 Neonat Direct Bilirubin Not Reportable 04/02/19 13:06 Neonat Indirect Bili Not Reportable 04/02/19 13:06 AST 20 U/L (14-36) 04/02/19 13:06 ALT 22 U/L (<35) 04/02/19 13:06 Alkaline Phosphatase 73 U/L (38-126) 04/02/19 13:06 Lactate Dehydrogenase 210 U/L (120-246) 04/02/19 19:00 Troponin I < 0.012 ng/mL 04/02/19 13:06 Total Protein 7.6 g/dL (6.3-8.2) 04/02/19 13:06 Albumin 4.6 g/dL (3.5-5.0) 04/02/19 13:06 Lipase 230.5 U/L (23-300) 04/04/19 04:46 Urine Color YELLOW 04/02/19 13:06 Urine Appearance CLEAR 04/02/19 13:06 Urine pH 5.0 (5.0-9.0) 04/02/19 13:06 Ur Specific [place] 1.026 04/02/19 13:06 Urine Protein 30 mg/dL (NEGATIVE) H 04/02/19 13:06 Urine Glucose (UA) NEGATIVE mg/dL (NEGATIVE) 04/02/19 13:06 Urine Ketones TRACE mg/dL (NEGATIVE) H 04/02/19 13:06 Urine Blood NEGATIVE (NEGATIVE) 04/02/19 13:06 Urine Nitrite (Reflex) NEGATIVE (NEGATIVE) 04/02/19 13:06 Urine Bilirubin NEGATIVE (NEGATIVE) 04/02/19 13:06 Urine Urobilinogen NEGATIVE mg/dL (<2.0) 04/02/19 13:06 Leukocyte Esterase Rfl NEGATIVE (NEGATIVE) 04/02/19 13:06 Urine RBC (Auto) 0 /HPF 04/02/19 13:06 U Hyaline Cast (Auto) 3 /LPF 04/02/19 13:06 Urine Mucus (Auto) OCC /LPF 04/02/19 13:06 Urine Ascorbic Acid NEGATIVE (NEGATIVE) 04/02/19 13:06 Stool Occult Blood NEGATIVE (NEGATIVE) 04/06/19 06:15 04/02/19 13:06 Troponin I < 0.012 Impressions: Acute Abdomen Series 04/02/19 12:43 IMPRESSION: NO RADIOGRAPHIC EVIDENCE FOR ACUTE ABDOMINAL DISEASE. PROMINENT STOOL THROUGHOUT THE COLON, POSSIBLE CONSTIPATION. Abdomen/Pelvis CT 04/02/19 18:14 IMPRESSION: 1. Pancreatitis with no evidence pancreatic pseudocyst. 2. Hepatic steatosis. 3. Pulmonary emphysema. KUB X-Ray 04/04/19 08:00 IMPRESSION: Moderate to severe colorectal stool burden. Abdomen Ultrasound 04/05/19 00:00 IMPRESSION: Pancreas not visualized No gallstones, gallbladder wall thickening or pericholecystic fluid Fatty liver Plan Time Spent: Greater than 30 Minutes Stroke Is this a Stroke Patient?: No Acute Heart Failure - Is this a Heart Failure Patient?: No
[2019-04-06 14:12] VITALS: BP 129/66
== END 2019-04-06 14:20 | disposition home or self-care (01) | DRG 439 ==
LOC: ER 11:50 → EH 20:44 → 3N 04-03 00:33 → 3S 04-04 17:42
PROVIDERS: ADMIT Internal Medicine; ATTEND Internal Medicine
DX: K85.90 Acute pancreatitis without necrosis or infection, unspecified (principal); J44.1 Chronic obstructive pulmonary disease with (acute) exacerbation; F11.20 Opioid dependence, uncomplicated; K57.92 Diverticulitis of intestine, part unspecified, without perforation or abscess without bleeding; E87.6 Hypokalemia; K64.9 Unspecified hemorrhoids; G89.29 Other chronic pain; I10 Essential (primary) hypertension; K59.03 Drug induced constipation; E78.5 Hyperlipidemia, unspecified; K21.9 Gastro-esophageal reflux disease without esophagitis; E78.00 Pure hypercholesterolemia, unspecified; T40.605A Adverse effect of unspecified narcotics, initial encounter; Y92.9 Unspecified place or not applicable; F32.9 Major depressive disorder, single episode, unspecified; Z79.899 Other long term (current) drug therapy; Z99.81 Dependence on supplemental oxygen; Z88.2 Allergy status to sulfonamides; Z87.891 Personal history of nicotine dependence
CPT/HCPCS: 36415; 74018; 74022; 74177; 76705; 80048; 80053; 81001; 82272; 82962; 83605; 83615; 83690; 83735; 84484; 85025; 85027; 87040; 93976; 94640; 94799; 96361; 96374; 96375; 96376; 99285; J0744; J1170; J1335; J1644; J1885; J2765; J3010; J3490; J7030; J7620; S0119

== ENCOUNTER → 2019-04-19 | Outpatient (CLI) | payer BC, MEDICARE, OTHER ==
[2019-04-19 16:53] LABS: ABSOLUTE EOSINOPHILS # (AUTO) 0.1 10^3/uL (0.0-0.6); ABSOLUTE LYMPHOCYTES (AUTO) 1.9 10^3/uL (0.5-4.7); ABSOLUTE MONOCYTES (AUTO) 0.4 10^3/uL (0.1-1.4); ABSOLUTE NEUT (AUTO) 5.7 10^3/uL (1.7-8.2); BASOPHILS % (AUTO) 0.5 % (0-2); EOSINOPHILS % (AUTO) 1.5 % (0-6); HEMATOCRIT 41.1 % (36.0-47.0); HEMOGLOBIN 13.9 g/dL (12.0-15.5); LYMPHOCYTES % (AUTO) 23.1 % (13-45); MEAN CORPUSCULAR HEMOGLOBIN 30.9 pg (27.0-33.4); MEAN CORPUSCULAR HGB CONC 33.8 g/dL (32.0-36.0); MEAN CORPUSCULAR VOLUME 92 fl (80-97); MONOCYTES % (AUTO) 5.5 % (3-13); PLATELET COUNT 331 10^3/uL (150-450); RED BLOOD COUNT 4.49 10^6/uL (3.72-5.28); RED CELL DISTRIBUTION WIDTH 15.7 % (11.5-14.0); SEGMENTED NEUTROPHILS % (AUTO) 69.4 % (42-78); TOTAL CELLS COUNTED % (AUTO) 100 %; WHITE BLOOD COUNT 8.2 10^3/uL (4.0-10.5)
== END ==
LOC: OD 15:01
PROVIDERS: ATTEND Physician Assistant
DX: K85.90 Acute pancreatitis without necrosis or infection, unspecified (principal); Z79.899 Other long term (current) drug therapy
CPT/HCPCS: 36415; 82150; 82306; 83690; 85025

== ENCOUNTER → 2019-06-01 | Outpatient (CLI) | payer MEDICARE, BC, OTHER ==
--- NOTE | 2019-06-01 12:37 | WOMENS IMAGING REPORT ---
EXAM DESCRIPTION: 3D SCREENING MAMMO BILAT COMPLETED DATE/TIME: 06/01/2019 11:37 am REASON FOR STUDY: ROUTINE SCREENING MAMMOGRAM Z12.31 Z12.31 ENCNTR SCREEN MAMMOGRAM FOR MALIGNANT N EOPLASM OF YRSI COMPARISON: Multiple since 2008 EXAM PARAMETERS: Standard craniocaudal and mediolateral oblique views of each breast recorded using digital acquisition and breast tomosynthesis. Read with the assistance of CAD. [facility] [employer] Version 9.2 LIMITATIONS: None. FINDINGS: Findings present which are benign by mammographic criteria. No suspicious masses, calcific ations or architectural distortion. Pertinent benign findings: Old biopsy clip left breast laterally. Benign bilateral breast and skin c alcifications. Benign mammographic findings may include one or more of the following: Smooth masses, popcorn/rim/coa rse calcifications, asymmetries, post-procedure changes, and lesions with long-standing stability. IMPRESSION: BENIGN MAMMOGRAPHIC FINDINGS. BIRADS 2 BREAST DENSITY: b. There are scattered areas of fibroglandular density. BIRAD: ASSESSMENT: 2 BENIGN FINDING(S) RECOMMENDATION: ROUTINE SCREENING Please continue yearly bilateral screening mammography/tomosynthesis in May 2020 COMMENT: The patient has been notified of the results by letter per MQSA requirements. Additional no tification policies are in place for contacting patient with suspicious or incomplete findings. Quality ID #[id number]: The [employer] recommends an annual screening mammogram for women aged 40 years or over. This facility utilizes a reminder system to ensure that all patients receive reminder letters, and/or direct phone calls for appointments. This includes reminders for routine scr eening mammograms, diagnostic mammograms, or other Breast Imaging Interventions when appropriate. Th is patient will be placed in the appropriate reminder system. TECHNICAL DOCUMENTATION: FINDING NUMBER: (1) ASSESSMENT: (1) JOB ID: [id number] [employer]- All Rights Reserved Reading location - IP/workstation name: [email or web address]
== END ==
LOC: WI 11:18
PROVIDERS: ATTEND Surgery
DX: Z12.31 Encounter for screening mammogram for malignant neoplasm of breast (principal)
CPT/HCPCS: 77063; 77067

== ENCOUNTER → 2020-06-02 | Outpatient (CLI) | payer BC, MEDICARE, OTHER ==
--- NOTE | 2020-06-02 14:35 | WOMENS IMAGING REPORT ---
EXAM DESCRIPTION: 3D SCREENING MAMMO BILAT IMAGES COMPLETED DATE/TIME: 06/02/2020 1:19 pm REASON FOR STUDY: Z12.31 ENCOUNTER FOR SCREENING MAMMOGRAM FOR MALIGNANT NEOPLASM OF BREAST Z12.31 ENCNTR SCREEN MAMMOGRAM FOR MALIGNANT NEOPLASM OF RYIS COMPARISON: 2013- EXAM PARAMETERS: Standard craniocaudal and mediolateral oblique views of each breast recorded using digital acquisition and breast tomosynthesis. Read with the assistance of CAD. .[facility] - [employer] Version 9.2 LIMITATIONS: None. FINDINGS: Findings present which are benign by mammographic criteria. No suspicious masses, calcific ations or architectural distortion. Pertinent benign findings: Scattered benign calcifications. Benign mammographic findings may include one or more of the following: Smooth masses, popcorn/rim/coa rse calcifications, asymmetries, post-procedure changes, and lesions with long-standing stability. IMPRESSION: BENIGN MAMMOGRAPHIC FINDINGS. BIRADS 2 BREAST DENSITY: b. There are scattered areas of fibroglandular density. BIRAD: ASSESSMENT: 2 BENIGN FINDING(S) RECOMMENDATION: ROUTINE SCREENING COMMENT: The patient has been notified of the results by letter per [place] requirements. Additional no tification policies are in place for contacting patient with suspicious or incomplete findings. Quality ID #[id number]: The [employer] recommends an annual screening mammogram for women aged 40 years or over. This facility utilizes a reminder system to ensure that all patients receive reminder letters, and/or direct phone calls for appointments. This includes reminders for routine scr eening mammograms, diagnostic mammograms, or other Breast Imaging Interventions when appropriate. Th is patient will be placed in the appropriate reminder system. TECHNICAL DOCUMENTATION: FINDING NUMBER: (1) ASSESSMENT: (1) JOB ID: [id number] 2010 [employer]- All Rights Reserved Reading location - IP/workstation name: [email or web address]
== END ==
LOC: WI 13:00
PROVIDERS: ATTEND Surgery
DX: Z12.31 Encounter for screening mammogram for malignant neoplasm of breast (principal)
CPT/HCPCS: 77063; 77067